=== PATIENT | female | born 1950 | race Caucasian/White ===

== ENCOUNTER 2017-07-28 12:27 | Emergency (ER) | payer MEDICARE, OTHER ==
[2017-07-28 13:07] LABS: #Basophils 0.1 thou/uL (0.0-0.2); #Eosinphils 0.3 thou/uL (0.0-0.7); #Lymphocytes 0.8 thou/uL (1.20-3.40); #Monocytes 0.6 thou/uL (0.11-0.59); #Neutrophils 7.1 thou/uL (1.40-6.50); %Basophils 0.6 % (0.0-1.0); %Eosinophils 2.9 % (0.0-10.0); %Lymphocytes 8.8 % (21.0-51.0); %Monocytes 6.8 % (0.0-10.0); Hematocrit 26.2 % (36.0-47.0); Mean Platelet Volume 6.4 fL (7.4-10.4); Red Blood Cell (RBC) Count 2.59 mill/uL (4.20-5.40); White Blood Cell (WBC) Count 8.7 thou/uL (4.8-10.8)
[2017-07-28 13:13] LABS: Bilirubin Negative (Negative); Blood, Urine Small (Negative); Glucose, Urine (Dipstick) Negative (Negative); Ketone, Urine Negative (Negative); Nitrite Negative (Negative); Protein, Urine (Dipstick) Trace mg/dL (Neg-Trace); Urobilinogen 0.2 mg/dL (0.2-1.0)
[2017-07-28 13:20] LABS: Bacteria/HPF 4+ HPF (None Seen); Hyaline Casts/LPF 0-3 HYALINE CAST LPF (0-3 Hyaline); RBC/HPF 0-3 HPF (0-3); Squamous Epithelial 0-3 HPF (0-3)
[2017-07-28 13:28] LABS: ALT (SGPT) 9 U/L (8-55); AST (SGOT) 17 U/L (5-34); Alkaline Phosphatase 61 U/L (40-150); Anion Gap 12 mmol/L (10-20); BUN (Urea Nitrogen) 31 mg/dL (9.8-20.1); Bilirubin, Total 0.3 mg/dL (0.2-1.2); Calc. Creatinine Clearance 0 mL/min (70-130); Calcium 9.1 mg/dL (7.8-10.44); Carbon Dioxide 23 mmol/L (23-31); Chloride 107 mmol/L (98-107); Estimated GFR-MDRD 48; Globulin 3.6 g/dL (2.4-3.5); Lipase 22 U/L (8-78)
[2017-07-28 13:39] LABS: Yeast-All Forms None Seen HPF (None Seen)
[2017-07-28] MEDS ORDERED: Iopamidol 370 76% 50 ML VIAL FS ONE (13:54)
[2017-07-28] MEDS ORDERED: ISOVUE-370 76%-LOCM 1 ML ONE (13:55)
[2017-07-28] MEDS ORDERED: Ondansetron HCl/PF 4 MG/2 ML Vial ONE (15:11)
[2017-07-28] MEDS ORDERED: Morphine 2 MG/ML SYRINGE ONE (15:17)
[2017-07-28] MEDS ORDERED: cefTRIAXone\\ROCEPHIN 1 GM VIAL ONE (17:13)
[2017-07-28] MEDS ORDERED: Sodium Chloride 0.9% 100 ML ONE (17:13)
--- NOTE | 2017-07-28 17:19 | CT ---
CT ABDOMEN AND PELVIS WITH CONTRAST: 07/28/17 HISTORY: Abdominal distention. History of colon resection. COMPARISON: CT abdomen and pelvic with contrast 2014. Patient has a history of uterine cancer, undergoing chemotherapy. Lung bases are clear. No pericardi al effusion. FINDINGS: Prior cholecystectomy. There is abnormal dilatation of the intrahepatic and extrahepatic b iliary system, similar dating back to 2014. This may be sequela of overlying stenosis of the papilla . There is moderate to severe right sided hydronephrosis. The urinary bladder is displaced posterior ly. No obstructive calculus is seen within the right renal collecting system. There are post treatment changes of the pelvis. There is abnormal peritoneal thickening along the stomal herniation with subcutaneous fluid and some loops of small bowel. There is some small foci of gas which is felt to be within the bowel on serie s 3, image 76, series 61, image 13. Large volume of ascites. This is much greater than 2015 examination. IVC filter is in place. There is a hypodensity within the spleen in the mid splenic body which is in creasing in size from prior examination. There is a ventral hernia with eventration of the abdominal wall containing small bowel and large samira wel without evidence of obstruction. There is a skin surgical staple in the abdomen adjacent to a sm all area of fluid containing ventral hernia. Extensive soft tissue edema of the flanks. IMPRESSION: IMPRESSION: 1. Large fluid and small bowel containing parastomal hernia with extensive peritoneal studding suggest progression of disease. 2. Large volume ascites. 3. Moderate to severe right sided hydroureteronephrosis. May be sequela of post treatment philip e. There is posterior displacement of the urinary bladder. 4. Moderate to severe intrahepatic and extrahepatic biliary dilatation may be sequela of papill guru stenosis. No distal obstructing mass is seen. The papilla is prominent on series 3, image 47. En doscopy may be beneficial. 5. Increasing in size hypodensity of the spleen, most likely a benign process although metastat ic disease cannot be totally excluded. 6. No evidence of bowel obstruction. 7. Ventral hernia containing large bowel and small bowel as well as ascitic fluid. POS: [facility]
== END 2017-07-28 18:35 | disposition home or self-care (01) ==
LOC: ERS 12:27
DX: N39.0 Urinary tract infection, site not specified (principal); R18.8 Other ascites; E11.9 Type 2 diabetes mellitus without complications; I10 Essential (primary) hypertension; Z79.891 Long term (current) use of opiate analgesic; Z79.01 Long term (current) use of anticoagulants; Z79.899 Other long term (current) drug therapy; Z79.4 Long term (current) use of insulin
CPT/HCPCS: 74177; 80053; 81003; 81015; 83690; 85025; 87077; 87086; 87186; 93005; 96361; 96365; 96375; J0696; J1642; J2270; J2405; J7050

== ENCOUNTER 2017-08-04 09:39 | Day surgery (SDC) | payer MEDICARE, OTHER ==
[2017-08-04 10:05] LABS: Prothrombin Time 14.7 SEC (12.0-14.7)
[2017-08-04 10:06] LABS: PTT 33.2 SEC (22.9-36.1)
[2017-08-04 12:28] VITALS: BP 148/80; TEMP 97.6; BMI 31.6
--- NOTE | 2017-08-04 14:57 | ULT ---
ULTRASOUND GUIDED PARACENTESIS: HISTORY: Ascites. COMPARISON: 06/27/2017 FINDINGS: A total of 4100 mL of blood colored ascites was aspirated. The patient tolerated the procedure well .. No immediate or post procedure complications. TECHNIQUE: Consent obtained to perform ultrasound guided paracentesis. The patient's abdomen was scanned and t he right lower quadrant was deemed appropriate. The skin was prepped and draped in a sterile fashio n. Lidocaine 1% buffered with sodium bicarbonate was used for local anesthesia. Under ultrasound g uidance, a 5 Omani, 7 cm catheter was advanced into the peritoneal space. Via vacuum bottles, a to humphrey of 4100 mL of bloody ascites was aspirated. The patient tolerated the procedure well. No post procedure complications. IMPRESSION: Successful ultrasound-guided paracentesis. POS: [facility]
== END 2017-08-04 11:45 | disposition home or self-care (01) ==
LOC: ULT 09:39
PROVIDERS: ATTEND Internal Medicine Hematology & Oncology
PROC: 0W9G3ZX Drainage of Peritoneal Cavity, Percutaneous Approach, Diagnostic (ICD-10-PCS; principal; 2017-08-04)
DX: R18.8 Other ascites (principal); C56.2 Malignant neoplasm of left ovary; E11.9 Type 2 diabetes mellitus without complications; I10 Essential (primary) hypertension; Z88.5 Allergy status to narcotic agent; Z88.8 Allergy status to other drugs, medicaments and biological substances; Z79.899 Other long term (current) drug therapy; Z90.49 Acquired absence of other specified parts of digestive tract; Z98.890 Other specified postprocedural states
CPT/HCPCS: 36415; 49083; 85610; 85730

== ENCOUNTER 2017-08-25 08:39 | Emergency (ER) | payer MEDICARE, OTHER ==
[2017-08-25] MEDS ORDERED: Morphine 4 MG/ML VIAL ONE (10:30)
--- NOTE | 2017-08-25 10:53 | RAD ---
1 VIEW CHEST: Date: 08/25/17 HISTORY: Abdominal pain. COMPARISON: 11/19/16. FINDINGS: Portable upright chest demonstrates a right-sided MediPort catheter. Elongation of the aorta is noted . Normal cardiac silhouette. Pulmonary vessels are within normal limits. There is blunting of the rig ht costophrenic angle due to pleural effusion and adjacent parenchymal changes. Left costophrenic ang le is clear. No pneumothorax. IMPRESSION: Pleural and parenchymal changes right lung base. Continued surveillance is recommended. POS: [facility]
[2017-08-25 11:05] LABS: #Eosinphils 0.1 thou/uL (0.0-0.7); #Lymphocytes 0.6 thou/uL (1.20-3.40); #Monocytes 0.4 thou/uL (0.11-0.59); #Neutrophils 5.3 thou/uL (1.40-6.50); %Basophils 0.5 % (0.0-1.0); %Monocytes 5.7 % (0.0-10.0); Mean Platelet Volume 6.3 fL (7.4-10.4); Red Blood Cell (RBC) Count 1.77 mill/uL (4.20-5.40); White Blood Cell (WBC) Count 6.4 thou/uL (4.8-10.8)
[2017-08-25 11:19] LABS: Troponin I Less than 0.010 ng/mL (< 0.028)
[2017-08-25 11:28] LABS: Prothrombin Time 16.1 SEC (12.0-14.7)
[2017-08-25 11:43] LABS: ALT (SGPT) 8 U/L (8-55); AST (SGOT) 16 U/L (5-34); Alkaline Phosphatase 65 U/L (40-150); Anion Gap 13 mmol/L (10-20); BUN (Urea Nitrogen) 32 mg/dL (9.8-20.1); Bilirubin, Total 0.3 mg/dL (0.2-1.2); Calc. Creatinine Clearance 0 mL/min (70-130); Calcium 8.5 mg/dL (7.8-10.44); Carbon Dioxide 19 mmol/L (23-31); Chloride 109 mmol/L (98-107); Estimated GFR-MDRD 39; Protein, Total 6.1 g/dL (6.0-8.3)
[2017-08-25 11:59] LABS: Bite Cells SLIGHT = 2-5 cells (100X) (0-1/hpf); Ovalocytes SLIGHT = 2-5 cells (100X) (0-1/hpf); Polychromasia SLIGHT = 2-3 cells (100X) (0-2/hpf); Tear Drops SLIGHT = 2-5 cells (100X) (0-1/hpf)
--- NOTE | 2017-08-25 12:41 | CT ---
CT ABDOMEN AND PELVIS WITH IV AND ORAL CONTRAST: Date: 08/25/17 HISTORY: Abdominal pain and bloating. COMPARISON: 07/28/17. FINDINGS: Right pleural fluid has developed since the prior study with atelectasis at each lung base. Large anibal unt of free fluid throughout the abdomen and pelvis has also increased. Upper anterior abdominal wall hernia containing nonobstructed bowel and fluid is not significantly changed. Peritoneal studding fo r metastatic disease is stable. Large parastomal hernia containing nonobstructed bowel and fluid is n ot significantly different than the previous study. Urinary bladder is compressed. Fibroid uterus and aortic calcifications are again demonstrated. Filter is present within the inferior vena cava. Low d ensity lesion within the spleen is stable. Tiny nonobstructing calculus at the inferior pole of the l eft kidney are similar in appearance to the prior exam. The left renal collecting system is decompres sed. Distention of the right renal collecting system and ureter are not significantly changed from th e previous study. No evidence of bowel obstruction. IMPRESSION: 1. Interval increase of free abdominal fluid. New right pleural effusion. 2. Extensive postoperative changes and other chronic-type findings are otherwise stable. No evidence of bowel obstruction. POS: [facility]
[2017-08-25 12:51] LABS: Bilirubin Negative (Negative); Blood, Urine Negative (Negative); Glucose, Urine (Dipstick) Negative (Negative); Ketone, Urine Negative (Negative); Nitrite Negative (Negative); Protein, Urine (Dipstick) Negative (Neg-Trace); Urobilinogen 0.2 mg/dL (0.2-1.0)
[2017-08-25 13:00] LABS: Bacteria/HPF None Seen HPF (None Seen); Hyaline Casts/LPF 4-6 HYALINE CAST LPF (0-3 Hyaline); RBC/HPF 0-3 HPF (0-3); Squamous Epithelial 0-3 HPF (0-3)
--- NOTE | 2017-08-25 17:15 | ULT ---
ULTRASOUND GUIDED PARACENTESIS: 08/25/17 HISTORY: Recurrent ascites. Patient with considerable discomfort. This was requested by the ER physician. The patient was on Xarelto but has not taken a dose for approximately 28 hours. Consultation is made with Pharmacy which states procedure could be performed after 24 hours. After informed consent was obtained with discussion of the additional risks for being on Xarelto, the patient consented to the procedure. She was prepped and draped in the normal sterile fashion. The la rgest pocket of fluid was in the right lower quadrant of the abdomen. The fluid has considerable echo genic material within it. This is of similar appearance to a previous ultrasound exam of 08/04/17. Using a 6 Sami Twisted Pair Solutionseh catheter, needle was placed under ultrasound guidance into the fluid without di fficulty. Total of 6 liters of fluid were obtained which was blood tinged. Patient tolerated the proc edure well. There were no immediate complications. IMPRESSION: Ultrasound guided paracentesis of 6 liters of fluid. POS: [facility]
[2017-08-25] MEDS ORDERED: ISOVUE-370 76%-LOCM 1 ML ONE (17:21)
[2017-08-25] MEDS ORDERED: Iopamidol 370 76% 50 ML VIAL FS ONE (17:21)
--- NOTE | 2017-09-16 15:32 | EKG ---
Test Reason : Blood Pressure : / mmHG Vent. Rate : 089 BPM Atrial Rate : 089 BPM P-R Int : 172 ms QRS Dur : 094 ms QT Int : 368 ms P-R-T Axes : 058 -06 043 degrees QTc Int : 447 ms Normal sinus rhythm Cannot rule out Inferior infarct , age undetermined Anterior infarct , age undetermined Abnormal ECG Confirmed by RAMIRO BRYAN D.O. ([id number]), marketing editor IVAN DYER ([id number]) on 09/16/2017 3:32:32 PM Referred By: Confirmed By:RAMIRO BRYAN D.O.
== END 2017-08-25 17:11 | disposition home or self-care (01) ==
LOC: ERS 08:39
DX: R18.8 Other ascites (principal); E11.9 Type 2 diabetes mellitus without complications; I10 Essential (primary) hypertension
CPT/HCPCS: 36415; 49083; 71010; 74177; 80053; 81003; 82553; 83605; 84484; 85025; 85610; 85730; 93005; 96374; J2270

== ENCOUNTER 2017-08-29 11:28 | Day surgery (SDC) | payer MEDICARE, OTHER ==
[2017-08-29] MEDS ORDERED: diphenhydrAMINE 25 MG CAP PO SCH (11:45)
[2017-08-29] MEDS ORDERED: Acetaminophen 500 MG TAB PO SCH (11:45)
[2017-08-29 19:26] VITALS: BP 160/82; TEMP 98
[2017-08-29 19:37] LABS: #Eosinphils 0.2 thou/uL (0.0-0.7); #Lymphocytes 1.1 thou/uL (1.20-3.40); #Monocytes 0.5 thou/uL (0.11-0.59); %Basophils 0.1 % (0.0-1.0); %Eosinophils 2.3 % (0.0-10.0); %Lymphocytes 16.8 % (21.0-51.0); %Monocytes 7.1 % (0.0-10.0); Hematocrit 29.9 % (36.0-47.0); Mean Platelet Volume 6.2 fL (7.4-10.4); Red Blood Cell (RBC) Count 2.99 mill/uL (4.20-5.40); White Blood Cell (WBC) Count 6.7 thou/uL (4.8-10.8)
== END 2017-08-29 19:27 | disposition home or self-care (01) ==
LOC: ONC/OP 11:28
PROVIDERS: ATTEND Internal Medicine Hematology & Oncology
PROC: 30233N1 Transfusion of Nonautologous Red Blood Cells into Peripheral Vein, Percutaneous Approach (ICD-10-PCS; principal; 2017-08-29)
DX: D64.9 Anemia, unspecified (principal); D69.59 Other secondary thrombocytopenia; C55 Malignant neoplasm of uterus, part unspecified; C78.6 Secondary malignant neoplasm of retroperitoneum and peritoneum; E11.9 Type 2 diabetes mellitus without complications; I10 Essential (primary) hypertension; Z79.84 Long term (current) use of oral hypoglycemic drugs; Z79.01 Long term (current) use of anticoagulants; Z79.891 Long term (current) use of opiate analgesic; Z79.899 Other long term (current) drug therapy; Z88.5 Allergy status to narcotic agent; Z88.8 Allergy status to other drugs, medicaments and biological substances; Z93.3 Colostomy status; Z95.828 Presence of other vascular implants and grafts; Z90.710 Acquired absence of both cervix and uterus; Z90.49 Acquired absence of other specified parts of digestive tract; Z98.890 Other specified postprocedural states; Z86.718 Personal history of other venous thrombosis and embolism
CPT/HCPCS: 36415; 36430; 80053; 82248; 83615; 84100; 84550; 85025; 86850; 86900; 86901; P9016

== ENCOUNTER 2017-08-31 19:08 | Inpatient (IN) | payer MEDICARE, OTHER ==
[2017-08-31 21:06] LABS: #Eosinphils 0.1 thou/uL (0.0-0.7); #Lymphocytes 0.8 thou/uL (1.20-3.40); #Monocytes 0.4 thou/uL (0.11-0.59); #Neutrophils 5.1 thou/uL (1.40-6.50); %Eosinophils 1.9 % (0.0-10.0); %Lymphocytes 12.7 % (21.0-51.0); %Monocytes 6.1 % (0.0-10.0); Hematocrit 25.7 % (36.0-47.0); Mean Platelet Volume 6.2 fL (7.4-10.4); Red Blood Cell (RBC) Count 2.56 mill/uL (4.20-5.40); White Blood Cell (WBC) Count 6.4 thou/uL (4.8-10.8)
[2017-08-31 21:07] LABS: Bilirubin Negative (Negative); Blood, Urine Negative (Negative); Glucose, Urine (Dipstick) Negative (Negative); Ketone, Urine Negative (Negative); Nitrite Negative (Negative); Protein, Urine (Dipstick) Negative (Neg-Trace); Urobilinogen 0.2 mg/dL (0.2-1.0)
[2017-08-31 21:10] LABS: Bacteria/HPF None Seen HPF (None Seen); Hyaline Casts/LPF 4-6 HYALINE CAST LPF (0-3 Hyaline); Squamous Epithelial 0-3 HPF (0-3)
[2017-08-31 21:26] LABS: Prothrombin Time 53.4 SEC (12.0-14.7)
[2017-08-31 21:27] LABS: ALT (SGPT) 8 U/L (8-55); AST (SGOT) 15 U/L (5-34); Alkaline Phosphatase 47 U/L (40-150); Anion Gap 12 mmol/L (10-20); BUN (Urea Nitrogen) 25 mg/dL (9.8-20.1); Bilirubin, Total 0.2 mg/dL (0.2-1.2); Calc. Creatinine Clearance 0 mL/min (70-130); Calcium 7.1 mg/dL (7.8-10.44); Carbon Dioxide 18 mmol/L (23-31); Chloride 112 mmol/L (98-107); Estimated GFR-MDRD 40; Globulin 2.4 g/dL (2.4-3.5); Protein, Total 4.7 g/dL (6.0-8.3)
[2017-08-31 21:30] LABS: PTT Greater than 250.0 SEC (22.9-36.1)
--- NOTE | 2017-08-31 23:51 | RAD ---
CHEST ONE VIEW: History: Abdominal pain. Chest pain. Comparison: 08-25-17 FINDINGS: Cardiac silhouette is magnified by projection. Pulmonary vasculature remains upper limits of normal. Mediastinum is midline with right internal jugular port-a-cath. Atelectasis and pleural fluid at the right base are stable. quality assurance monitor leads overlie the chest. IMPRESSION: Right pleural fluid and other findings are stable. POS: [facility]
[2017-09-01 00:41] VITALS: BMI 30.7
[2017-09-01] MEDS ORDERED: FLU VACC TS2017-18 (>65YR) 0.5 ML SYRINGE IM ONE (09:00)
--- NOTE | 2017-09-01 09:26 | HP ---
HISTORY OF PRESENT ILLNESS: Ms. Castro is a 67-year-old female treated by Dr. Gregorio Bejarano, her family practice physician and seen by Dr. Marie, her oncologist, for uterine cancer and who is hospitalized from the emergency room with new onset lower extremity edema preventing her from ambulating, an uncomfortable rash in her right groin, increasing abdominal girth , a report of some abdominal pain, which upon further discussion appears to be coincident with the right lower quadrant/right groin area rash of a few days. She denies any fever, chest pain or shortness of breath, but indicates she has had a cough and some runny nose for approximately the last week. She denies vomiting or diarrhea, and had a normal bowel movement 1 day ago. She denies hematuria or dysuria. PAST MEDICAL HISTORY: 1. Carcinoma of the ovary, as of 10/2014, status post hysterectomy and chemotherapy with no radiation. She continues to have chemotherapy and has an upcoming chemotherapy schedule this next week. 2. History of diabetes. 3. History of hypertension. 4. History of a left lower extremity DVT with IVC filter placement. 5. Colostomy (performed at the time of her surgery for her malignancy). PAST SURGICAL HISTORY: 1. Hysterectomy. 2. Partial colectomy with colostomy. 3. Carpal tunnel syndrome surgery x2. 4. Hernia repair. 5. Right upper chest MediPort. CURRENT HOME MEDICATIONS: Xarelto 20 mg daily, Januvia 100 mg daily, amlodipine 5 mg daily, lisinopril 20 mg daily, [place] 10/325 twice daily, ondansetron 4 mg q.6h. p.r.n. nausea. ALLERGIES AND SENSITIVITIES: 1. ACETAMINOPHEN listed in dictation, indicates no problems. 2. ATENOLOL, causes headache. 3. CODEINE, causes rash and headache. 4. METFORMIN, headache, and vomiting. 5. DARVOCET, rash and headache. SOCIAL HISTORY: No alcohol or illicit drug use. Living situation, the patient lives near [place] in a home with her youngest son. She has another son who lives nearby. She has been a for many years. Hobbies; she likes to sew quilts and watch old movies on television. Sabianist preference is Mormonism/Sikh. PHYSICAL EXAMINATION: VITAL SIGNS: Weight 168 pounds, blood pressure 132/74, O2 sat 93, respiratory rate 20, pulse 92, temperature 98.1. GENERAL: Alert, pleasant, in no acute distress with occasional cough. HEENT: No conjunctivitis. Oral cavity shows upper and lower dentures that are present. LUNGS: Nonlabored breathing right chest with diffusely less breath sounds. CARDIAC: Regular rate and rhythm with a 2/6 systolic murmur. ABDOMEN: Bowel sounds are present. There is a large midline epigastric bulge suggestive of an abdominal hernia in the epigastrium. In the right lower quadrant/groin area there is a diffuse red confluence with some small reddish macular lesions seen on the periphery of this without ulceration, vesicles or bullae. Left lower quadrant is a normal appearing colostomy with colostomy bag. EXTREMITIES: Bilateral lower extremity edema which includes feet, ankles and legs below the knee. LABORATORY AND X-RAY FINDINGS: Chest x-ray shows right-sided pleural effusion. White blood cell count 6.4, hemoglobin 8.4, platelets 257. PT 53. INR 5.5, PTT greater than 250, potassium 4.1, sodium 138, carbon dioxide 18, BUN 25, creatinine 1.33, albumin 2.3. Urinalysis, too numerous to count white blood cells, squamous cells 0-3, 4-6 red blood cells. Abdominal pelvis CT from 6 days prior, abdominal fluid and new right-sided pleural effusion, dilation of right-sided ureter/collecting system. ASSESSMENT: 1. Ovarian cancer with ongoing chemotherapy, metastatic, intraperitoneal. 2. Abnormal urine suggestive of urinary tract infection. 3. Right groin rash which could be Cecelia. 4. New onset of lower extremity edema impairing her ambulation. 5. Right-sided pleural effusion. 6. Ascites. 7. Mild upper respiratory infection symptoms with cough and rhinorrhea. 8. Laboratories suggest of coagulopathy, but no active bleeding is seen. 9. History of deep vein thrombosis on Xarelto and with history of IVC placement. 10. History of diabetes. 11. History of hypertension. PLAN: 1. Empiric antibiotic therapy. 2. Compression stockings. 3. Nystatin cream to right groin area. 4. Oncology consultation. 5. Consider blood transfusion. [facility]
[2017-09-01] MEDS ORDERED: Phytonadione 10 MG/ML AMP SLOW IVP SCH (10:30)
--- NOTE | 2017-09-01 10:38 | CON ---
DATE OF CONSULTATION: 09/01/2017 REASON FOR CONSULTATION: Coagulopathy. HISTORY OF PRESENT ILLNESS: The patient is a 67-year-old woman with known progressive, metastatic ov pako carcinoma initially diagnosed in 10/2014. The patient has been treated with multiple chemother apeutic regimens and her treatment has included debulking surgery in 01/2015. More recently, the dis ease has been progressing despite multiple chemotherapeutic interventions. She did experience a post operative deep venous thrombosis in 01/2015, which resulted in placement of an IVC filter. Since fabian t time, she has been maintained on Xarelto. She has required repeat paracentesis for malignant ascit es and has also required repetitive red cell transfusion for treatment and malignancy associated anem ia. On the day of admission, she presented to the emergency room with concerns of a significant brui se in the right lower quadrant which had developed subsequent to recent paracentesis. Laboratory joe dies were performed showing a stable post-transfusion hemoglobin of 8.4. She was hemodynamically sta ble. However, coagulation studies showed a PT of 53.4 seconds, INR 5.5, and PTT greater than 250. S he is admitted at this time for further evaluation and treatment. ALLERGIES: She describes sensitivities to CODEINE, DARVOCET and GLUCOPHAGE. MEDICATIONS: [place], Xarelto, Prochlorperazine and ondansetron. MEDICAL ILLNESS: There is a history of hypertension, diabetes mellitus, and an episode of pancreatit is in 2011 of unclear cause. PAST SURGICAL HISTORY: She has undergone cholecystectomy in 2008 and hernia repair in 2009. FAMILY HISTORY: The patient's sister had ovarian cancer in her 30s, details unavailable. She then d eveloped breast cancer and at age 50. SOCIAL HISTORY: The patient is . She has 2 children. She lives alone, but her son is quite involved in her care. She is a nonsmoker and nondrinker. She has worked in sales in the past. REVIEW OF SYSTEMS: She complains of lower extremity edema and lower extremity muscle cramps. Otherw ise, except as mentioned in history of present illness, she denies significant cardiopulmonary, GI, G U, musculoskeletal, or neurological complaints. PHYSICAL EXAMINATION: VITAL SIGNS: Temperature 98.4, pulse 90, respirations 16, blood pressure 142/78. GENERAL: The patient is a well-developed and well-nourished woman in no acute distress. She is aler t, oriented, and cooperative. She does appear somewhat chronically ill. HEENT: The extraocular movements are intact. Pupils equal, round, and reactive to light. NECK: Supple. LUNGS: Clear. CARDIOVASCULAR: Regular rate and rhythm without murmur, rub, gallop or click. ABDOMEN: The abdomen shows no tenderness or mass/organomegaly. There is a large ventral hernia pres ent. She is quite obese and there is likely ascites present. There is an ecchymotic area in the ext joshua right lower quadrant without active bleeding at the site of the prior, recent paracentesis. EXTREMITIES: No clubbing or cyanosis. There is 3+ lower extremity pitting edema to the thighs. LYMPH: No adenopathy. MUSCULOSKELETAL: No active arthritis. NEUROLOGIC: No focal findings. Cranial nerves II-XII are grossly intact. LABORATORY: See history of present illness. IMAGING: A chest x-ray shows a right pleural effusion, which has been present previously without oth er significant findings. IMPRESSION: 1. Metastatic and progressive ovarian carcinoma with malignant ascites requiring repetitive therapeu tic paracentesis. 2. Coagulopathy manifested by an elevated INR and PTT in a patient who is hemodynamically stable wit hout significant bleeding. RECOMMENDATIONS: I would recommend repeating the PT/INR and PTT to be certain the study is accurate. However, the coagulopathy is likely secondary to malnutrition, vitamin K deficiency, and Xarelto ef fect. There is little evidence of DIC or a disk diversion at present. I would recommend holding the Xarelto for now and administering vitamin K. We will follow daily coagulation studies and resume Xa relto when studies allow. We will likely resume Xarelto at a lower dose, 10 mg daily, based upon rec ently reported studies of lower dose maintenance therapy. Thanks very much for allowing me to provide my recommendations.
[2017-09-01 10:45] LABS: PTT 38.2 SEC (22.9-36.1); Prothrombin Time 15.1 SEC (12.0-14.7)
[2017-09-01] MEDS ORDERED: ONDANSETRON 4 MG PO PRN (14:17)
[2017-09-01] MEDS ORDERED: Ondansetron ODT 4 MG TAB PO PRN (14:25)
[2017-09-01] MEDS: HYDROcodone/Acetaminophen 10/325 mg Tablet PO SCH (19:38)
[2017-09-01] MEDS: Nystatin Cream 30 GM TUBE TOP SCH (19:44)
[2017-09-01] MEDS ORDERED: Nystatin Cream 15 GM TUBE TOP SCH (21:00)
[2017-09-02 06:06] LABS: Prothrombin Time 14.2 SEC (12.0-14.7)
[2017-09-02 06:07] LABS: PTT 36.2 SEC (22.9-36.1)
[2017-09-02 07:12] VITALS: BP 138/78
[2017-09-02] MEDS: HYDROcodone/Acetaminophen 10/325 mg Tablet PO SCH (08:27)
[2017-09-02] MEDS: Nystatin Cream 30 GM TUBE TOP SCH (08:29)
[2017-09-02] MEDS ORDERED: Alogliptin Benzoate 25 MG TABLET PO SCH (09:00)
[2017-09-02] MEDS ORDERED: Rivaroxaban 10 MG TAB PO SCH (09:00)
[2017-09-02] MEDS ORDERED: Amlodipine 5 MG TAB PO SCH (09:00)
[2017-09-02] MEDS ORDERED: Non-Formulary Item 1 EACH (Rivaroxaban [Xarelto] 20 MG) PO SCH (09:00)
[2017-09-02] MEDS ORDERED: Lisinopril 20 MG TAB PO SCH (09:00)
[2017-09-02 09:29] VITALS: TEMP 97.3
--- NOTE | 2017-09-02 16:20 | PRG ---
DATE OF SERVICE: 09/02/2017 SUBJECTIVE: Feeling much better and desirous of going home. She is able to ambulate independently w ithout difficulty. She has improvement of the rash in her right groin/right lower quadrant area. Sh enrike continues to have some cough. OBJECTIVE: VITAL SIGNS: Blood pressure 138/78, pulse 81, temperature 97.3, O2 saturation 96. GENERAL: Alert and oriented x3, in no acute distress. LUNGS: With diffusely diminished breath sounds on her right lung angulo. CARDIAC: Regular rate and rhythm with 2/6 systolic murmur. Right chest wall port present. ABDOMEN: Soft, nontender. Some improvement in the intensity of the Cecelia looking rash in her righ t lower quadrant, right groin area (intertrigo). EXTREMITIES: Swelling seen in her lower extremities. NEUROLOGIC: The patient is able to independently sit, stand, walk and return to the bed with a nicole l gait and station. LABORATORY DATA: INR 1.1. ASSESSMENT: 1. Ovarian carcinoma, metastatic and progressive with malignant ascites. 2. Right-sided pleural effusion. 3. Abnormal urinalysis suggestive of urinary tract infection, currently on levofloxacin. 4. Right groin area candidiasis. 5. Abnormal laboratory value suggesting coagulopathy without hematuria, blood in stool, nosebleeds, hematoma or any significant cutaneous bruising. 6. Lower extremity edema. 7. Hypoalbuminemia. 8. Cough, likely related to pleural effusion. 9. History of deep vein thrombosis with history of IVC placement. 10. History of diabetes. 11. History of hypertension. PLAN: Compression stockings. We will expect discharge home soon.
--- NOTE | 2017-09-03 01:55 | DIS ---
HOSPITAL COURSE: Ms. Castro is a 67-year-old female treated by Dr. Gregorio Bejarano of Family Practice and Dr. Dimitri Marie of Oncology, who presented with a dramatic increase in her bilateral lower extremity swelling impeding her ambulation, abdominal pain, as well as some right lower quadrant area reddish rash. She was evaluated in the emergency room and found to have an abnormal lab test suggesting of coagulopathy which normalized on repeat testing. She had an abnormal urinalysis with too numerous to count white blood cells for which she received levofloxacin. She was seen in consultation by Dr. Marie who being familiar with her care and case, indicated at this time she appears to be appropriate for discharge, although her ovarian cancer, metastatic and progressive with intraperitoneal spread, continues to cause many problems to include hypoalbuminemia and anemia. ASSESSMENT: 1. Ovarian carcinoma with ongoing chemotherapy (with metastases, peritoneal) and upcoming continued chemotherapy this following week. 2. Abnormal urine suggestive of urinary tract infection, status post Levaquin therapy. 3. Right groin rash which was thought possibly due to some bruising from a recent paracentesis several centimeters above where this right lower quadrant/ groin bruising appears to be, while I am inclined to think of it as a candidiasis, lower extremity edema with hypoalbuminemia. 4. Ascites. 5. Right-sided pleural effusion with some cough. 6. Labs suggestive of coagulopathy with no active bleeding. 7. History of deep vein thrombosis with a history of intravenous filter placement and chronic anticoagulation therapy with Xarelto. 8. History of diabetes. 9. History of hypertension. PLAN: Discharge home today. Follow with Dr. Marie as planned this next week. Continue home medications which include Xarelto 20 mg daily, ondansetron 4 mg q. 6 hours p.r.n., Januvia 100 mg daily, amlodipine 5 mg daily, lisinopril 20 mg daily, nystatin cream applied topically twice daily. [facility]
== END 2017-09-02 14:47 | disposition home or self-care (01) | DRG 755 ==
LOC: ERS 19:08 → T4-B 22:30
PROVIDERS: ADMIT Family Medicine; ATTEND Family Medicine
DX: C56.9 Malignant neoplasm of unspecified ovary (principal); C78.6 Secondary malignant neoplasm of retroperitoneum and peritoneum; R18.0 Malignant ascites; J90 Pleural effusion, not elsewhere classified; B37.89 Other sites of candidiasis; D68.4 Acquired coagulation factor deficiency; E88.09 Other disorders of plasma-protein metabolism, not elsewhere classified; N39.0 Urinary tract infection, site not specified; Z86.718 Personal history of other venous thrombosis and embolism; Z79.01 Long term (current) use of anticoagulants; I10 Essential (primary) hypertension; E11.9 Type 2 diabetes mellitus without complications; Z80.41 Family history of malignant neoplasm of ovary; D63.0 Anemia in neoplastic disease; Z90.710 Acquired absence of both cervix and uterus; Z93.3 Colostomy status
CPT/HCPCS: 36415; 36416; 71010; 80053; 81003; 81015; 85025; 85610; 85730; 93005; 96374; J0696; J3430

== ENCOUNTER 2017-09-06 11:50 | Day surgery (SDC) | payer MEDICARE, OTHER ==
[~2017-09-06 11:50] MED LIST: FLU VACC TS2017-18 (>65YR) 0.5 ML SYRINGE IM ONE
[2017-09-06 14:19] VITALS: TEMP 98.1
[2017-09-06 14:21] VITALS: BMI 31.6
--- NOTE | 2017-09-06 15:05 | ULT ---
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 TECHNIQUE: Signed, informed consent obtained. Ultrasound survey of the four quadrants of the abdominal cavity. R ight lower quadrant selected. Overlying skin prepped and draped in usual sterile fashion. 25 gauge ne edle used to apply buffered lidocaine superficially and deeply. 5 Sami Yueh catheter with stylette advanced in tandem with the 25 gauge needle into the peritoneal cavity. 25 gauge needle and the style tte of the Yueh catheter were removed. Yueh catheter was connected to a series of evacuated bottles v ia plastic tubing. After drainage, catheter was removed. The patient tolerated the procedure well. No complications. FINDINGS: Prior to the procedure, there is a large pocket of fluid in the right lower quadrant, moderate pocket of free fluid in the right upper quadrant, small pocket of free fluid in the left upper quadrant, an d no fluid in the left lower quadrant. The fluid has homogeneously intermediate echogenicity, indicat ing that it is hemorrhagic ascites. Post drainage image demonstrates no residual fluid in the right lower quadrant. A total of 5,100 mL of frankly hemorrhagic fluid was drained. IMPRESSION: Successful therapeutic paracentesis, with drainage of 5.1 liters of hemorrhagic ascites. POS: [facility]
== END 2017-09-06 14:10 | disposition home or self-care (01) ==
LOC: ULT 11:50
PROVIDERS: ATTEND Internal Medicine Hematology & Oncology
PROC: 0W9G3ZX Drainage of Peritoneal Cavity, Percutaneous Approach, Diagnostic (ICD-10-PCS; principal; 2017-09-06)
DX: C56.2 Malignant neoplasm of left ovary (principal); C78.6 Secondary malignant neoplasm of retroperitoneum and peritoneum; R18.0 Malignant ascites; Z88.5 Allergy status to narcotic agent; Z88.8 Allergy status to other drugs, medicaments and biological substances
CPT/HCPCS: 49083

== ENCOUNTER 2017-09-10 18:22 | Inpatient (IN) | payer MEDICARE, OTHER ==
[~2017-09-10 18:22] MED LIST changes: -FLU VACC TS2017-18 (>65YR) 0.5 ML SYRINGE IM ONE; +Iopamidol 370 76% 100 ML VIAL ONE
[2017-09-10 19:30] LABS: #Eosinphils 0.1 thou/uL (0.0-0.7); #Lymphocytes 0.9 thou/uL (1.20-3.40); #Neutrophils 5.1 thou/uL (1.40-6.50); %Basophils 0.2 % (0.0-1.0); %Eosinophils 1.1 % (0.0-10.0); %Lymphocytes 14.6 % (21.0-51.0); %Monocytes 0.5 % (0.0-10.0); Hematocrit 31.7 % (36.0-47.0); Mean Platelet Volume 6.4 fL (7.4-10.4); Red Blood Cell (RBC) Count 3.16 mill/uL (4.20-5.40); White Blood Cell (WBC) Count 6.1 thou/uL (4.8-10.8)
[2017-09-10] MEDS ORDERED: Morphine 4 MG/ML VIAL ONE ×2 (19:35→21:49)
[2017-09-10 19:37] LABS: PTT 39.6 SEC (22.9-36.1); Prothrombin Time 19.1 SEC (12.0-14.7)
[2017-09-10 19:53] LABS: ALT (SGPT) 7 U/L (8-55); AST (SGOT) 15 U/L (5-34); Alkaline Phosphatase 60 U/L (40-150); Anion Gap 10 mmol/L (10-20); BUN (Urea Nitrogen) 30 mg/dL (9.8-20.1); Bilirubin, Total 0.2 mg/dL (0.2-1.2); Calc. Creatinine Clearance 0 mL/min (70-130); Calcium 8.7 mg/dL (7.8-10.44); Carbon Dioxide 25 mmol/L (23-31); Chloride 102 mmol/L (98-107); Estimated GFR-MDRD 53; Lipase 15 U/L (8-78); Magnesium 1.4 mg/dL (1.6-2.6); Protein, Total 5.8 g/dL (6.0-8.3)
[2017-09-10 19:57] LABS: Troponin I Less than 0.010 ng/mL (< 0.028)
[2017-09-10] MEDS ORDERED: Magnesium 2 GM/NS 0.9% 50 ML 2 GM in Premix Bag 1 BAG IVPB SCH (20:15)
--- NOTE | 2017-09-10 21:04 | RAD ---
AP CHEST: Indication: Chest pain. Comparison: 08-31-17 FINDINGS: There is worsening right sided pleural effusion with some residual aeration involving the right upper lobe. Chronic lung changes of the left lung is similar. Cardiomegaly is similar. Right IJ dialysis c atheter is unchanged. Osseous structures are similar appearing. IMPRESSION: Enlarging severe right sided pleural effusion. The remainder of the examination is stable to the comp arison. POS: [facility]
[2017-09-10 21:18] LABS: Bilirubin Negative (Negative); Blood, Urine Negative (Negative); Glucose, Urine (Dipstick) Negative (Negative); Ketone, Urine Negative (Negative); Nitrite Negative (Negative); Protein, Urine (Dipstick) Negative (Neg-Trace); Urobilinogen 0.2 mg/dL (0.2-1.0)
--- NOTE | 2017-09-10 21:21 | CT ---
CT ABDOMEN AND PELVIS WITH IV CONTRAST: Indication: Abdominal pain radiating into the right aspect. Comparison: 08-25-17 FINDINGS: There is an enlarging right sided pleural effusion causing mass effect on the mediastinum and near co mplete atelectasis of the right lower lobe. Prominent ascites is again noted with associated abdomina l wall and periumbilical hernias. Parastomal hernia involving the left lower quadrant with associated fluid distending the hernia sac is similar appearing. The peritoneal metastatic disease is similar. Small bowel is normal caliber. Moderate amount of retained stool is seen within the colon. IVC filter is similar appearing. Prominent distention of the right renal collecting system is similar. Left alvina al collecting system remains decompressed. Mild lymphadenopathy is seen within the upper abdomen is s imilar. There is diffuse anasarca. Scattered degenerative and osteoarthritic change. IMPRESSION: 1. Worsening large right pleural effusion with near complete atelectasis of the right lower lobe and mass effect upon the mediastinum. 2. Stable prominent ascites with anterior abdominal and parastomal hernias containing peritoneal flui d. 3. Stable peritoneal metastatic disease. 4. Mild anasarca. POS: [facility]
[2017-09-10] MEDS ORDERED: Ondansetron HCl/PF 4 MG/2 ML Vial ONE (21:58)
[2017-09-10] MEDS ORDERED: Ondansetron ODT 4 MG TAB SL PRN (22:29)
[2017-09-10] MEDS ORDERED: Ondansetron HCl/PF 4 MG/2 ML Vial IVP PRN (22:29)
[2017-09-10] MEDS ORDERED: Acetaminophen 325 MG TAB PO PRN (22:29)
[2017-09-10 22:57] LABS: Troponin I 0.011 ng/mL (< 0.028)
[2017-09-11 01:20] LABS: Troponin I Less than 0.010 ng/mL (< 0.028)
[2017-09-11] MEDS: Morphine 4 MG/ML VIAL SLOW IVP PRN ×2 (03:51→08:07)
[2017-09-11] MEDS: Amlodipine 5 MG TAB PO SCH (08:09)
[2017-09-11] MEDS: Rivaroxaban 10 MG TAB PO SCH (08:09)
[2017-09-11] MEDS: Alogliptin Benzoate 25 MG TABLET PO SCH (08:10)
[2017-09-11] MEDS: Lisinopril 20 MG TAB PO SCH (08:10)
--- NOTE | 2017-09-11 08:34 | HP ---
ADMITTING PHYSICIAN: Gregorio Bejarano M.D. HISTORY OF PRESENT ILLNESS: The patient is a 67-year-old female with known history of ovarian cancer . She was most recently hospitalized here 08/31/2017 with a history of shortness of breath. She was found to have massive ascites, right-sided pleural effusion. At that time she underwent paracentesi s with some improvement. She now notes that she is having difficulty walking and shortness of breath . She now notes no fever. She notes shortness of breath, abdominal discomfort with abdominal protub erance. As noted, she was most recently evaluated here approximately 3-4 weeks ago. At that time angeline calvert underwent paracentesis. There has been no fever. She has recently undergone chemotherapy. ALLERGIES: She has no known allergies. CURRENT HOME MEDICATIONS: Xarelto 20 mg daily, Januvia 100 mg daily, amlodipine 5 mg daily, lisinopr il 20 mg daily, [place] 10/325 daily, ondansetron 4 mg every 6 hours p.r.n. nausea. PAST MEDICAL HISTORY: Positive for the above noted ovarian cancer. PAST SURGICAL HISTORY: She is a positive for hysterectomy, colectomy with colostomy, carpal tunnel s urgery, hernia repair, right upper chest MediPort. She also has a history of DVT with IVC filter. ALLERGIES: ACETAMINOPHEN, TYLENOL, CODEINE, METFORMIN, DARVOCET. SOCIAL AND PERSONAL HISTORY: She is a . She does not smoke nor does she drink alcohol. Her gr andson lives with her. PHYSICAL EXAMINATION: VITAL SIGNS: Temperature 97.4, pulse 107, respirations 16, O2 sat 96%, blood pressure 131/65. GENERAL: She is alert, appears to be in some mild distress with fatigue. HEENT: There is alopecia secondary to chemotherapy. Sclerae and conjunctivae clear. NECK: Supple, full range of motion, no masses. LUNGS: Reveal decreased breath sounds at the right base. There is no evidence of any rales. HEART: Reveals an irregular regular rhythm with grade 2/6 systolic murmur. ABDOMEN: Protuberant, obese with a hernia midline. There is no evidence of rebound or guarding note d at this time. EXTREMITIES: Shows 2+ edema bilaterally. LABORATORY: Hemoglobin is 10.2, hematocrit 31.7, white blood count 6.1. PT 19.1, INR of 3.6, sodium 132, potassium 4.9, chloride 102, CO2 25, BUN 30, creatinine 1.04. Troponins are otherwise normal. Urinalysis is clear. IMPRESSION: Increasing ascites and right pleural effusion, most likely secondary to malignancy. PLAN: We will hold his Xarelto at this time, possibly can plan on doing a therapeutic paracentesis a nd possible thoracentesis once she has been off of Xarelto. We will consult Oncology for further rec ommendations.
[2017-09-11] MEDS ORDERED: Nystatin Cream 15 GM TUBE TOP SCH ×2 (09:00)
[2017-09-11] MEDS ORDERED: Non-Formulary Item 1 EACH (Rivaroxaban [Xarelto] 20 MG) PO SCH (09:00)
[2017-09-11] MEDS: Ondansetron ODT 4 MG TAB PO PRN (10:10)
[2017-09-11] MEDS: Enoxaparin Sodium 30 MG/0.3 ML SYRINGE SC SCH (11:02)
[2017-09-11] MEDS ORDERED: Morphine 4 MG/ML Carpuject SLOW IVP PRN (11:13)
[2017-09-11] MEDS ORDERED: Morphine 4 MG/ML VIAL IV PRN (11:16)
--- NOTE | 2017-09-11 12:50 | CON ---
DATE OF CONSULTATION: 09/11/2017 REASON FOR CONSULTATION: Ovarian cancer. HISTORY OF PRESENT ILLNESS: Ms. 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 She has undergone multiple chemotherapy regimens and is current ly on topotecan. Her last dose was completed on Monday09/08/2017, she has been struggling with myel osuppression from this treatment and has been inconsistently able to get it. She has had increasing abdominal distention and has had several paracenteses. Her last was on 09/06/2017 when she had 5.1 l iters removed. Over the weekend, she had increasing shortness of breath and abdominal distention, so she presented to the emergency room for evaluation and a CT scan showed a large right pleural effusi on. She again had a moderate amount of ascites. She was admitted for treatment, Pulmonology was con sulted for possible thoracentesis. The patient complains of shortness of breath and abdominal pain. PAST MEDICAL HISTORY: 1. Metastatic ovarian carcinoma. 2. Diabetes mellitus. 3. Hypertension. 4. Cholelithiasis. 5. Pancreatitis. PAST SURGICAL HISTORY: 1. Cholecystectomy. 2. Hernia repair. 3. Multiple paracentesis. ALLERGIES: DARVOCET and GLUCOPHAGE. HOME MEDICATIONS: 1. Amlodipine 5 mg daily. 2. Hydrocodone 10/325 p.o. b.i.d. p.r.n. 3. Lisinopril 20 mg daily. 4. Zofran p.r.n. 5. Xarelto 10 mg daily. 6. Januvia 50 mg daily. FAMILY HISTORY: Her sister had ovarian cancer at the age of 30 and developed breast cancer and at the age of 50. SOCIAL HISTORY: . Has 2 children, lives with her son. No alcohol, tobacco or illicit drug u se. REVIEW OF SYSTEMS: Twelve-point review of systems is negative except for abdominal distention and sh ortness of breath and lower extremity swelling. PHYSICAL EXAMINATION: VITAL SIGNS: Temperature is 98.7, pulse is 92, respiratory rate 18, BP is 129/60. She is 96% on 2 l iters. GENERAL: Chronically ill-appearing female in no acute distress. HEENT: Normocephalic, atraumatic. Pupils equal and reactive to light. CARDIOVASCULAR: Regular rate and rhythm. LUNGS: Diminished on her right anteriorly. ABDOMEN: Distended, bowel sounds are positive. EXTREMITIES: She has got 1+ bilateral lower extremity edema. SKIN: No rash. HEMATOLOGIC: No petechia or purpura. NEUROLOGIC: Nonfocal. PSYCHIATRIC: The patient is alert and oriented and appropriate. PERTINENT LABORATORY AND X-RAYS: Current WBCs are 6.1, hemoglobin 10.2, hematocrit 31.7, platelet co unt 244,000 and 84% neutrophils, 15% lymphocytes. PT is 19.1, INR is 1.6, PTT is 39.6. Sodium 132, potassium 4.9, chloride 102, CO2 is 25, BUN is 30, creatinine 1.04, glucose 107, calcium 8.7, magnesi um 1.4, total bilirubin is 0.2, AST 17, ALT 7, alkaline phosphatase is 60. Troponin is negative. BN P is 120, serum total protein 5.8, albumin 2.8, globulin 3, lipase is 15. Urine is negative for bact eria. ASSESSMENT: 1. Metastatic ovarian carcinoma, status post chemotherapy with topotecan last week. 2. Malignant ascites, requiring recurrent paracentesis, last performed 09/06/2017. 3. Malignant right pleural effusion. DISCUSSION: The patient did receive her Xarelto this morning, but it will be held and for a possible palliative thoracentesis tomorrow. Dr. Lopez has been consulted for his opinion. She may need a paracentesis prior to discharge home. The patient and her son are hesitant to discuss end-of-life is sues. She remains a FULL CODE at this time. Thank you for the consult.
[2017-09-11] MEDS: HYDROcodone/Acetaminophen 10/325 mg Tablet PO PRN ×2 (13:30→21:56)
[2017-09-11] MEDS ORDERED: Lidocaine 1% (PF) 30 ML VIAL ONE (16:31)
--- NOTE | 2017-09-11 17:01 | CON ---
DATE OF SERVICE: 09/11/2017 SERVICE: Pulmonary Medicine. REASON FOR CONSULTATION: Respiratory failure. HISTORY OF PRESENT ILLNESS: The patient is a 67-year-old white female with past medical history sign ificant for uterine cancer. She was in her usual state of health when she started having increasing dyspnea on exertion. Previously, she had a paracentesis that was performed demonstrating adenocarcin magnolia in the fluid. She does have a right-sided pleural effusion that was present previously. That be ing said, it was left alone because it was not as large as it has now become. She denies any current fevers or chills. She has no specific cough or sputum production. PAST MEDICAL HISTORY: 1. Adenocarcinoma, ovarian thought to be the primary (though the patient tells me it is uterine canc er). 2. Type 2 diabetes mellitus. 3. Hypertension. PAST SURGICAL HISTORY: 1. Cholecystectomy. 2. Herniorrhaphy. 3. Paracentesis, multiple. ALLERGIES: DARVOCET, GLUCOPHAGE. MEDICATIONS: List of her inpatient medications was reviewed. No specific updates were made at this time. FAMILY HISTORY: Noncontributory. SOCIAL HISTORY: She is . She has 2 childrens and lives with her son. She denies any use of alcohol, tobacco or illicit drugs. She has no exposure to chemicals, dust, asbestosis or tuberculosi s. REVIEW OF SYSTEMS: General, head, ears, eyes, nose, throat, cardiovascular, respiratory, GI, , mus culoskeletal, neurologic and skin is negative except as mentioned in the HPI. PHYSICAL EXAMINATION: VITAL SIGNS: Afebrile, pulse 95, blood pressure 131/64, respirations 16, saturation 96% on room air. GENERAL: The patient is awake and alert, in no apparent distress. LUNGS: Decent air entry on the left. On the right, she does not have any vesicular breath sounds, a lthough they are present. There are no wheezing, rhonchi, or crackles are appreciated. HEART: Normal rate, regular. ABDOMEN: Soft. Nontender. No rebound or guarding is present. Bowel sounds are present. MUSCULOSKELETAL: No cyanosis or clubbing. No pitting in the bilateral lower extremities. NEUROLOGIC: Grossly nonfocal. : No Hanson. LABORATORY: WBC 6.1, hemoglobin 10.2, platelets 244,000. INR 1.6. Basic metabolic profile and live r function studies are essentially unremarkable except for magnesium of 1.4. Liver function studies, cardiac enzymes are negative. BNP is minimally elevated at 119. Urinalysis is negative. IMAGING: CT of the abdomen and pelvis demonstrates a large pleural effusion on the right. There is otherwise no acute cardiopulmonary abnormality. There is complete atelectasis of the right lower lob e. There is mass effect on the mediastinum. Minimal anasarca is present. Chest x-ray demonstrates tirso-opacification of the right lung. Mediastina shifted away from the pleu ral effusion. A port catheter is in good position. ASSESSMENT: 1. Adenocarcinoma, widely metastatic, genitourinary origin. 2. Pleural effusion, large. PLAN: We will perform a thoracentesis for therapeutic and diagnostic purposes. If there are cancer cells present, which I presume there will be, she will be a candidate for PleurX next go around provi ded that she gets good relief from the staff. Pulmonary Critical Care will continue to follow while the patient remains in house for the time being.
[2017-09-11 17:24] LABS: BF Reference Range Comment Note:
[2017-09-11 18:57] LABS: BF Color Pink
[2017-09-11 18:58] LABS: RBC Count-Automated 10000 /cumm
[2017-09-11 21:02] LABS: Number Cells Counted-Fluids 100
[2017-09-12] MEDS: Nystatin Cream 30 GM TUBE TOP SCH ×3 (00:27→22:36)
[2017-09-12] MEDS: Ondansetron ODT 4 MG TAB PO PRN ×3 (00:27→22:35)
--- NOTE | 2017-09-12 00:35 | OP ---
DATE OF SURGERY: 09/11/2017 SERVICE: Pulmonary Medicine. PROCEDURE: Right-sided pleural drainage with catheter insertion under ultrasound guidance. CONSENT: Risks and benefits of this procedure were discussed with the patient and family members jeromy or to initiating the procedure. STAFF PHYSICIAN: Steve Lopez M.D. MEDICATIONS: Lidocaine 1% without epinephrine, total quantity 7 mL. PREOPERATIVE DIAGNOSES: 1. Pleural effusion. 2. History of malignant ascites. POSTOPERATIVE DIAGNOSES: 1. Pleural effusion. 2. History of malignant ascites. DESCRIPTION OF PROCEDURE: A timeout was performed by the procedure team and the patient. The patien t was positively identified using name and date of . The procedure site was marked. Vital sign monitoring was accomplished by noninvasive hemodynamic monitoring, pulse oximetry, and telemetry. I n the seated position, the right posterior hemithorax was examined using ultrasound probe. The diaph ragm and pleural fluid was easily identified. The skin was prepped and draped in sterile fashion, an esthetized with 1% lidocaine without epinephrine. A finder needle was inserted into the pleural spac e with return of cloudy, essence-colored fluid. A pleural drainage catheter was inserted in the same l ocation. A total quantity of 2.3 liters of pleural fluid was withdrawn by syringe pump technique. A sample was sent for analysis. Evacuation was terminated because the patient had onset of some degre e of chest discomfort, which was recurrent after a brief interlude. At the end of the procedure, est imated pleural pressures, measured by manometry were -10 cm of pleural fluid. The intact catheter wa s withdrawn on exhalation and a sterile dressing was applied. The patient had stable vital signs thr oughout the entire procedure. ESTIMATED BLOOD LOSS: 2 mL. COMPLICATIONS: None.
[2017-09-12 05:33] LABS: #Eosinphils 0.1 thou/uL (0.0-0.7); #Lymphocytes 0.7 thou/uL (1.20-3.40); #Neutrophils 2.6 thou/uL (1.40-6.50); %Basophils 0.2 % (0.0-1.0); %Eosinophils 1.5 % (0.0-10.0); %Lymphocytes 20.5 % (21.0-51.0); %Monocytes 1.1 % (0.0-10.0); Mean Platelet Volume 6.5 fL (7.4-10.4); Red Blood Cell (RBC) Count 2.49 mill/uL (4.20-5.40); White Blood Cell (WBC) Count 3.4 thou/uL (4.8-10.8)
[2017-09-12 05:56] LABS: Anion Gap 9 mmol/L (10-20); BUN (Urea Nitrogen) 30 mg/dL (9.8-20.1); Calc. Creatinine Clearance 61 mL/min (70-130); Calcium 8.1 mg/dL (7.8-10.44); Carbon Dioxide 23 mmol/L (23-31); Chloride 106 mmol/L (98-107); Estimated GFR-MDRD 49
[2017-09-12] MEDS: HYDROcodone/Acetaminophen 10/325 mg Tablet PO PRN ×3 (07:44→20:49)
--- NOTE | 2017-09-12 08:05 | PRG ---
DATE OF SERVICE: 09/12/2017 Ms. Castro is complaining of some pain to her right flank today. She reports no shortness of breath. She does have some nausea, but no vomiting. OBJECTIVE: VITAL SIGNS: Temperature 98.6, BP 115/59. LUNGS: Reveal bilateral breath sounds. ABDOMEN: The abdomen reveals some tenderness to the right upper quadrant, but no evidence of rebound or guarding. It is still protuberant from the ascitic fluid. It is noted she underwent thoracentesis yesterday performed by Dr. Lopez, approximately 2.3 liters of pleural fluid was withdrawn. She states she is feeling better since that has happened. IMPRESSION: 1. Malignant ascites. 2. Probable malignant effusion. PLAN: We will go ahead and start paracentesis today. Unfortunately, she could not have any type of a permanent catheter placement unless she goes into hospice. We will go ahead and get fluid withdraw n and restart her back on Xarelto. Further followup will be with Oncology.
[2017-09-12] MEDS ORDERED: Lidocaine 1% MPF 2 ML VIAL ONE (09:57)
[2017-09-12] MEDS: Rivaroxaban 10 MG TAB PO SCH (11:50)
[2017-09-12] MEDS: Amlodipine 5 MG TAB PO SCH (11:56)
[2017-09-12] MEDS: Lisinopril 20 MG TAB PO SCH (11:56)
[2017-09-12] MEDS: Alogliptin Benzoate 25 MG TABLET PO SCH (11:57)
--- NOTE | 2017-09-12 12:10 | ULT ---
ULTRASOUND PARACENTESIS: Date: 09-12-17 History: Malignant ascites. FINDINGS: Informed consent for ultrasound guided paracentesis obtained prior to the procedure. Technique: Pre-procedural imaging demonstrates significant fluid throughout the abdomen and pelvis. Skin overlyi ng the midright abdomen is prepped and draped in normal sterile fashion and anesthetized with 1% buff ered Lidocaine. With direct sonographic guidance, a 5 Estonian Yueh needle was advanced into the peritoneal cavity and removal of the stylet yields blood ascites. 4 L were removed. The patient tolerated the procedure wel l. IMPRESSION: Successful ultrasound guided paracentesis. POS: [facility]
[2017-09-12] MEDS: Enoxaparin Sodium 30 MG/0.3 ML SYRINGE SC SCH (12:26)
--- NOTE | 2017-09-12 20:57 | PRG ---
DATE OF SERVICE: 09/12/2017 SERVICE: Pulmonary Medicine. INTERVAL HISTORY: The patient is doing fine from a respiratory standpoint. She currently denies any fevers, chills, nausea, or vomiting. Her breathing is much improved. The thoracentesis improved he r breathing in a dramatic fashion. She had an additional 8 liters of fluid removed from her abdomina l cavity today. Otherwise, she is returning to her usual state of health and she got her appetite ba ck. PHYSICAL EXAMINATION: VITAL SIGNS: Afebrile, pulse 90, blood pressure 98/57, respirations 16, saturation 96% on room air. GENERAL: The patient is awake and alert, in no apparent distress. LUNGS: Excellent air entry on the left. There is a slightly reduced air entry on the right base. N o prolonged expiratory phase or wheezing is appreciated. Dependent crackles are evident, particularl y on the right. HEART: Normal rate, regular. ABDOMEN: Soft. Nondistended. Bowel sounds are present. MUSCULOSKELETAL: No cyanosis or clubbing. There is no pitting on the bilateral lower extremities. NEUROLOGIC: Grossly nonfocal. LABORATORY DATA: WBC 3.4, hemoglobin 8.2, platelets 158,000. INR 1.6. Creatinine 1.11, BUN 30. Ba sic metabolic profile is otherwise unremarkable. Urinalysis is unremarkable. Pleural fluid is a lym phocytic exudate, but the non-hematologic cells yet to be characterized. The pleural pH is normal. LDH is slightly elevated as is the total protein making this a fairly weak exudate. Body fluid cultu res negative to date. Cytology on the fluid is currently pending. ASSESSMENT: 1. Adenocarcinoma, widely metastatic of origin. 2. Pleural effusion, large. 3. Malignant ascites. PLAN: The patient had a profound improvement in symptoms associated with a thoracentesis. As such, in the future if she has recurrence of this effusion, she would be a candidate for PleurX catheter. Sometimes these things can be placed on a 1-2 month basis and can actually cause auto-pleurodesis of this phase. If that happens in the outpatient setting, the catheter could then subsequently be remov ed. We will follow up on the cytology, but from a purely respiratory perspective, there is nothing t hat needs to keep her in the hospital. I will repeat hemoglobin tomorrow morning.
[2017-09-13 05:45] LABS: Anion Gap 8 mmol/L (10-20); BUN (Urea Nitrogen) 24 mg/dL (9.8-20.1); Calc. Creatinine Clearance 73 mL/min (70-130); Calcium 8.1 mg/dL (7.8-10.44); Carbon Dioxide 25 mmol/L (23-31); Chloride 106 mmol/L (98-107); Estimated GFR-MDRD 61
[2017-09-13 06:08] LABS: Band 2 % (5-11); Hematocrit 24.5 % (36.0-47.0); Macrocytosis SLIGHT = 6-15 cells (100X) (0-5/hpf); Mean Platelet Volume 6.6 fL (7.4-10.4); Neutrophil 67 % (42-75); Red Blood Cell (RBC) Count 2.45 mill/uL (4.20-5.40); Tear Drops SLIGHT = 2-5 cells (100X) (0-1/hpf); White Blood Cell (WBC) Count 1.3 thou/uL (4.8-10.8)
[2017-09-13 07:54] VITALS: BP 117/68; TEMP 97.6
[2017-09-13] MEDS: Amlodipine 5 MG TAB PO SCH (08:28)
[2017-09-13] MEDS: Alogliptin Benzoate 25 MG TABLET PO SCH (08:29)
[2017-09-13] MEDS: Lisinopril 20 MG TAB PO SCH (08:29)
[2017-09-13] MEDS: Nystatin Cream 30 GM TUBE TOP SCH (08:30)
--- NOTE | 2017-09-13 08:34 | PRG ---
DATE OF SERVICE: 09/13/2017 SUBJECTIVE: Ms. Castro is doing well. She is feeling much better. She had decreased respiratory dis tress with decreased abdominal pain. She has undergone thoracentesis and paracentesis. Pathology is still pending at this time. LABORATORY DATA: Her white blood count this morning is 1.3, hemoglobin 8.0, hematocrit 24.5. Chemis try shows sodium 134, creatinine 0.92. IMPRESSION: Malignant pleural effusion with malignant ascites secondary to ovarian cancer. Patient symptomatically improved. PLAN: We will discharge home. Continue home medications. Follow up with Dr. Marie.
[2017-09-13] MEDS ORDERED: Rivaroxaban 10 MG TAB PO SCH (09:00)
--- NOTE | 2017-09-13 19:13 | PRG ---
DATE OF SERVICE: 09/13/2017 SERVICE: Pulmonary Medicine. INTERVAL HISTORY: The patient is doing great from a cardiovascular and respiratory standpoint. She is breathing comfortably. She is looking forward to going home today. PHYSICAL EXAMINATION: VITAL SIGNS: Afebrile, pulse 90, blood pressure 117/68, respirations 16, saturation 96% on 2 liters nasal cannula. GENERAL: The patient is awake, alert, in no apparent distress. LUNGS: Excellent air entry with no prolonged expiratory phase. No crackles are appreciated today. HEART: Normal rate, regular. ABDOMEN: Soft, nontender, nondistended. Bowel sounds positive. MUSCULOSKELETAL: No cyanosis or clubbing. No pitting in the bilateral lower extremities. NEUROLOGIC: Grossly nonfocal. LABORATORY DATA: WBC 1.3, hemoglobin 8.0, platelets 115,000. INR 1.6. Creatinine 0.92. Basic meta bolic profile was otherwise unremarkable. Urinalysis is unremarkable. The fluid is consistent with a weak exudate. Cytology on the thoracentesis fluid has adenocarcinoma, consistent with the patient' s known metastatic disease. ASSESSMENT: 1. Adenocarcinoma, widely metastatic, of origin. 2. Malignant pleural effusion. 3. Malignant ascites. PLAN: The patient had a profound improvement in symptoms associated with a thoracentesis. As such, when and if she has recrudescence of her pleural effusion, she would be a very good candidate for a P leurX catheter. Sometimes, this will cause auto-pleurodesis of the pleural cavity and can subsequent ly be removed in 1-2 months if it stops putting fluid out. Recurrent thoracentesis will typically fa il after 3-4 taps. At this time, she has no further requirements for inpatient Pulmonary Critical Ca re opinion. I will sign off. Please call with additional questions or concerns moving forward.
== END 2017-09-13 10:18 | disposition home or self-care (01) | DRG 754 ==
LOC: ERS 18:22 → 2SE 20:20
PROVIDERS: ADMIT Family Medicine; ATTEND Family Medicine
PROC: 0W993ZX Drainage of Right Pleural Cavity, Percutaneous Approach, Diagnostic (ICD-10-PCS; principal; 2017-09-11)
PROC: 0W9G3ZZ Drainage of Peritoneal Cavity, Percutaneous Approach (ICD-10-PCS; 2017-09-12)
DX: C56.9 Malignant neoplasm of unspecified ovary (principal); J96.91 Respiratory failure, unspecified with hypoxia; R18.0 Malignant ascites; J91.0 Malignant pleural effusion; Z86.718 Personal history of other venous thrombosis and embolism; Z90.49 Acquired absence of other specified parts of digestive tract; Z90.710 Acquired absence of both cervix and uterus; Z88.5 Allergy status to narcotic agent; Z88.8 Allergy status to other drugs, medicaments and biological substances; Z85.42 Personal history of malignant neoplasm of other parts of uterus; E11.9 Type 2 diabetes mellitus without complications; I10 Essential (primary) hypertension
CPT/HCPCS: 36415; 36416; 49083; 71010; 74177; 80048; 80053; 81003; 82553; 82945; 83615; 83690; 83735; 83880; 83986; 84157; 84484; 85007; 85025; 85027; 85060; 85610; 85730; 87070; 87102; 87116; 87205; 87206; 88112; 88305; 89051; 93005; 96365; 96375; 96376; A4216; J1650; J2001; J2270; J2405; J3475; Q0162

== ENCOUNTER 2017-09-25 15:05 | Day surgery (SDC) | payer MEDICARE, OTHER ==
[2017-09-25] MEDS ORDERED: diphenhydrAMINE 25 MG CAP PO SCH (15:30)
[2017-09-25] MEDS ORDERED: Acetaminophen 500 MG TAB PO SCH (15:30)
[2017-09-25] MEDS ORDERED: Sodium Chloride 0.9% 20 ML ONE (18:48)
[2017-09-25 22:57] VITALS: BP 155/83; TEMP 98
[2017-09-26 02:26] LABS: #Lymphocytes 0.8 thou/uL (1.20-3.40); #Monocytes 0.3 thou/uL (0.11-0.59); #Neutrophils 0.7 thou/uL (1.40-6.50); %Basophils 0.3 % (0.0-1.0); %Eosinophils 1.8 % (0.0-10.0); %Lymphocytes 43.9 % (21.0-51.0); %Monocytes 14.9 % (0.0-10.0); Hematocrit 27.5 % (36.0-47.0); Mean Platelet Volume 7.5 fL (7.4-10.4); Red Blood Cell (RBC) Count 2.83 mill/uL (4.20-5.40); White Blood Cell (WBC) Count 1.8 thou/uL (4.8-10.8)
== END 2017-09-25 22:58 | disposition home or self-care (01) ==
LOC: ONC/OP 15:05
PROVIDERS: ATTEND Internal Medicine Hematology & Oncology
PROC: 30233N1 Transfusion of Nonautologous Red Blood Cells into Peripheral Vein, Percutaneous Approach (ICD-10-PCS; principal; 2017-09-25)
DX: D64.9 Anemia, unspecified (principal); D69.6 Thrombocytopenia, unspecified; C56.9 Malignant neoplasm of unspecified ovary; C78.6 Secondary malignant neoplasm of retroperitoneum and peritoneum; I10 Essential (primary) hypertension; E11.9 Type 2 diabetes mellitus without complications; Z88.5 Allergy status to narcotic agent; Z88.8 Allergy status to other drugs, medicaments and biological substances
CPT/HCPCS: 36415; 36430; 80053; 82248; 83615; 84100; 84550; 85025; 86304; 86850; 86900; 86901; A4216; J1642; P9016

== ENCOUNTER 2017-09-27 10:25 | Day surgery (SDC) | payer MEDICARE, OTHER ==
[2017-09-26 10:18] VITALS: BMI 30.6
[~2017-09-27 10:25] MED LIST changes: +FLU VACC TS2017-18 (>65YR) 0.5 ML SYRINGE IM ONE; -Iopamidol 370 76% 100 ML VIAL ONE
[2017-09-27 12:05] VITALS: BP 123/59; TEMP 98.1
--- NOTE | 2017-09-27 16:34 | ULT ---
ULTRASOUND GUIDED PARACENTESIS THERAPEUTIC: 09/27/17 HISTORY: 67-year-old female with malignant ascites due to ovarian cancer with intraperitoneal metastasis. TECHNIQUE: Signed informed consent obtained. Adequate pocket of (echogenic) free fluid identified in the right l ateral aspect of the abdominal cavity. Overlying skin prepped and draped in the usual sterile fashion . 25 gauge needle used to apply buffered lidocaine superficially and deeply. Under ultrasound guidanc e, 25 gauge needle was used to apply buffered lidocaine (first to the skin) through the right lateral abdominal wall. A 5 Bolivian Yueh catheter with stylet was advanced in tandem with the 25 gauge needle . The Yueh stylet and the 25 gauge needle were removed. The Yueh catheter was connected to a series o f evacuated bottles via plastic tubing. After drainage of fluid, the Yueh catheter was removed. Patie nt tolerated the procedure well. No complications. FINDINGS: Prior to the procedure, images demonstrate a moderate to large pocket of free fluid in the right late ral aspect of the abdominal cavity, and a small amount of free fluid in the left lower quadrant. Intr aprocedural images demonstrate first the 25 gauge needle tip within the peritoneal cavity, then the 5 Bolivian Yueh catheter. A total of 5200 mL of hemorrhagic fluid was drained. Postprocedure image of th e right lower quadrant demonstrates a minimal amount of residual fluid. IMPRESSION: 1. Successful therapeutic paracentesis. 2. Drainage of 5.2 liters of hemorrhagic ascites fluid. POS: [facility]
== END 2017-09-27 11:35 | disposition home or self-care (01) ==
LOC: ULT 10:25
PROVIDERS: ATTEND Internal Medicine Hematology & Oncology
DX: C56.2 Malignant neoplasm of left ovary (principal); R18.0 Malignant ascites; C78.6 Secondary malignant neoplasm of retroperitoneum and peritoneum; E11.9 Type 2 diabetes mellitus without complications; I10 Essential (primary) hypertension; D64.9 Anemia, unspecified; D69.6 Thrombocytopenia, unspecified; Z88.5 Allergy status to narcotic agent; Z88.8 Allergy status to other drugs, medicaments and biological substances; Z90.49 Acquired absence of other specified parts of digestive tract; Z90.710 Acquired absence of both cervix and uterus; Z98.890 Other specified postprocedural states; Z79.01 Long term (current) use of anticoagulants; Z79.84 Long term (current) use of oral hypoglycemic drugs; Z79.891 Long term (current) use of opiate analgesic; Z79.899 Other long term (current) drug therapy
CPT/HCPCS: 49083

== ENCOUNTER 2017-10-17 10:56 | Emergency (ER) | payer MEDICARE, OTHER ==
[2017-10-17 11:48] LABS: Hemoglobin 7.7 g/dL (12.0-16.0); Mean Corpuscular HGB CONC 32.1 g/dL (32.0-36.0); Mean Corpuscular Hemoglobin 31.6 pg (27.0-31.0); Mean Corpuscular Volume 98.4 fl (81.0-99.0); Red Blood Cell (RBC) Count 2.43 mill/uL (4.20-5.40); White Blood Cell (WBC) Count 6.7 thou/uL (4.8-10.8)
[2017-10-17 12:01] LABS: ALT (SGPT) 10 U/L (8-55); AST (SGOT) 15 U/L (5-34); Albumin 2.7 g/dL (3.4-4.8); Alkaline Phosphatase 72 U/L (40-150); Anion Gap 15 mmol/L (10-20); BUN (Urea Nitrogen) 31 mg/dL (9.8-20.1); Bilirubin, Total 0.2 mg/dL (0.2-1.2); CK (CPK) 86 U/L (29-168); Calc. Creatinine Clearance 0 mL/min (70-130); Calcium 7.8 mg/dL (7.8-10.44); Carbon Dioxide 23 mmol/L (23-31); Chloride 105 mmol/L (98-107); Estimated GFR-MDRD 43; Globulin 3.3 g/dL (2.4-3.5); Glucose 95 mg/dL (80-115); Lipase 13 U/L (8-78); Potassium 3.8 mmol/L (3.5-5.1); Sodium 139 mmol/L (136-145)
[2017-10-17 12:02] LABS: Band 41 % (5-11); Bite Cells SLIGHT = 2-5 cells (100X) (0-1/hpf); Dohle Bodies SLIGHT; Eosinophils 2 % (0-10); Lymphocytes 14 % (21-51); MDiff Complete? YES; Mean Platelet Volume 10.9 fL (7.4-10.4); Metamyelocyte 1 % (0-0); Monocytes 2 % (0-10); Neutrophil 40 % (42-75); PLT Morphology Comment Appears Decreased; Platelet Count 48 thou/uL (130-400); Polychromasia SLIGHT = 2-3 cells (100X) (0-2/hpf); RBC Distribution Width 15.3 % (11.5-14.5); Toxic Granulation SLIGHT
[2017-10-17 12:03] LABS: CKMB 1.6 ng/mL (0-6.6); Troponin I 0.014 ng/mL (< 0.028)
--- NOTE | 2017-10-17 12:29 | RAD ---
TWO VIEWS OF THE CHEST: 10/17/2017 HISTORY: Abdominal pain and swelling. COMPARISON: 09/10/2017 FINDINGS: There is a small/moderate right pleural effusion. There is partial opacification of the right middle and right lower lobes. The pleural fluid is markedly decreased in size when compared to the 017 exam. There is a right-sided Port-A-Cath, its superior portion incompletely imaged. The left tyler ng appears clear. IMPRESSION: Increased pleural and parenchymal opacity in the right lung base, aeration improved when compared to the 09/10/2017 exam. The right basilar density may signify pleural effusion with associated parenchymal volume loss. A de gree of infectious pneumonitis or aspiration cannot be excluded. POS: [facility]
--- NOTE | 2017-11-04 22:09 | EKG ---
Test Reason : Blood Pressure : / mmHG Vent. Rate : 105 BPM Atrial Rate : 105 BPM P-R Int : 146 ms QRS Dur : 066 ms QT Int : 314 ms P-R-T Axes : 059 016 101 degrees QTc Int : 415 ms Sinus tachycardia Anteroseptal infarct , age undetermined Abnormal ECG Confirmed by KENDRA HUTCHINSON, VIANNEY ([id number]), editorial project manager IVAN DYER ([id number]) on 11/04/2017 10:08:41 PM Referred By: Confirmed By:VIANNEY GARDNER MD
== END 2017-10-17 14:44 | disposition home or self-care (01) ==
LOC: ERS 10:56
DX: R14.0 Abdominal distension (gaseous) (principal); E11.9 Type 2 diabetes mellitus without complications; I10 Essential (primary) hypertension; Z85.42 Personal history of malignant neoplasm of other parts of uterus
CPT/HCPCS: 36415; 49082; 71046; 80053; 82553; 83690; 83880; 84484; 85025; 93005

== ENCOUNTER 2017-10-23 10:01 | Day surgery (SDC) | payer MEDICARE, OTHER ==
[2017-10-23] MEDS ORDERED: Acetaminophen 500 MG TAB PO SCH (10:15)
[2017-10-23] MEDS ORDERED: diphenhydrAMINE 25 MG CAP PO SCH (10:15)
[2017-10-23] MEDS ORDERED: Sodium Chloride 0.9% 20 ML ONE (10:31)
[2017-10-23 16:53] LABS: Hemoglobin 8.8 g/dL (12.0-16.0); Mean Corpuscular HGB CONC 32.8 g/dL (32.0-36.0); Mean Corpuscular Hemoglobin 31.6 pg (27.0-31.0); Mean Corpuscular Volume 96.4 fl (81.0-99.0); Mean Platelet Volume 7.8 fL (7.4-10.4); Platelet Count 208 thou/uL (130-400); RBC Distribution Width 14.8 % (11.5-14.5); Red Blood Cell (RBC) Count 2.78 mill/uL (4.20-5.40)
[2017-10-23 17:19] VITALS: BP 157/74; TEMP 97.9
[2017-10-23 17:39] LABS: Band 18 % (5-11); Lymphocytes 13 % (21-51); MDiff Complete? YES; Metamyelocyte 3 % (0-0); Monocytes 6 % (0-10); Myelocyte 2 % (0-0); Neutrophil 57 % (42-75); Nucleated RBC 2 % (0); Ovalocytes SLIGHT = 2-5 cells (100X) (0-1/hpf); PLT Morphology Comment Appears Adequate; Polychromasia SLIGHT = 2-3 cells (100X) (0-2/hpf); Reactive Lymphocytes 1 % (0-10); Toxic Granulation SLIGHT
== END 2017-10-23 16:05 | disposition home or self-care (01) ==
LOC: ONC/OP 10:01
PROVIDERS: ATTEND Internal Medicine Hematology & Oncology
PROC: 30233N1 Transfusion of Nonautologous Red Blood Cells into Peripheral Vein, Percutaneous Approach (ICD-10-PCS; principal; 2017-10-23)
DX: D64.9 Anemia, unspecified (principal); D69.6 Thrombocytopenia, unspecified; E11.9 Type 2 diabetes mellitus without complications; I10 Essential (primary) hypertension; Z88.5 Allergy status to narcotic agent; Z88.8 Allergy status to other drugs, medicaments and biological substances; Z90.49 Acquired absence of other specified parts of digestive tract; Z98.890 Other specified postprocedural states
CPT/HCPCS: 36415; 36430; 80053; 82248; 83615; 84100; 84550; 85025; 86304; 86850; 86900; 86901; A4216; J1642; P9016

== ENCOUNTER 2017-11-02 09:53 | Day surgery (SDC) | payer MEDICARE, OTHER ==
[~2017-11-02 09:53] MED LIST changes: +Prevnar 13-Val Conj/PF 0.5 ML SYRINGE IM ONE
[2017-11-02 10:13] LABS: INR-International Normal Ratio 1.1; PTT 39.9 SEC (22.9-36.1); Prothrombin Time 14.6 SEC (12.0-14.7)
--- NOTE | 2017-11-02 13:03 | ULT ---
ULTRASOUND GUIDED PARACENTESIS: INDICATION: Ascites. TECHNIQUE: Informed consent was obtained. Preprocedure ultrasound demonstrated a large pocket within the right lower quadrant of the abdomen. The site was prepped and draped in the usual sterile fashion. Buffer ed 1% Lidocaine was administered to the overlying subcutaneous tissues. Under ultrasound guidance, a 5 Kyrgyz Yueh catheter was guided down into the large collection of the right lower quadrant. Five liters of peritoneal fluid was removed from the peritoneal cavity. The patient tolerated the procedu re without difficulty. IMPRESSION: Successful ultrasound-guided paracentesis removal of 5 L of peritoneal fluid. POS: [facility]
[2017-11-02 14:02] VITALS: TEMP 97.8
[2017-11-02 14:03] VITALS: BMI 29.5
[2017-11-02 14:06] VITALS: BP 130/63
== END 2017-11-02 11:50 | disposition home or self-care (01) ==
LOC: ULT 09:53
PROVIDERS: ATTEND Internal Medicine Hematology & Oncology
PROC: 0W9G3ZZ Drainage of Peritoneal Cavity, Percutaneous Approach (ICD-10-PCS; principal; 2017-11-02)
PROC: BW40ZZZ Ultrasonography of Abdomen (ICD-10-PCS; 2017-11-02)
DX: C56.2 Malignant neoplasm of left ovary (principal); R18.0 Malignant ascites; D70.1 Agranulocytosis secondary to cancer chemotherapy; E11.9 Type 2 diabetes mellitus without complications; I10 Essential (primary) hypertension; Z79.01 Long term (current) use of anticoagulants; Z79.84 Long term (current) use of oral hypoglycemic drugs; Z79.899 Other long term (current) drug therapy; Z88.5 Allergy status to narcotic agent; Z88.8 Allergy status to other drugs, medicaments and biological substances; Z90.49 Acquired absence of other specified parts of digestive tract; Z98.890 Other specified postprocedural states
CPT/HCPCS: 49083; 85610; 85730

== ENCOUNTER 2017-11-09 12:54 | Day surgery (SDC) | payer MEDICARE, OTHER ==
[2017-11-09] MEDS ORDERED: Acetaminophen 500 MG TAB PO SCH (14:00)
[2017-11-09] MEDS ORDERED: diphenhydrAMINE 25 MG CAP PO SCH (14:00)
[2017-11-09] MEDS ORDERED: Sodium Chloride 0.9% 20 ML ONE (14:23)
[2017-11-09 19:50] VITALS: BP 121/60; TEMP 98
[2017-11-09 20:38] LABS: Anisocytosis SLIGHT = 6-15 cells (100X) (0-5/hpf); Band 14 % (5-11); Hemoglobin 8.8 g/dL (12.0-16.0); Lymphocytes 11 % (21-51); MDiff Complete? YES; Mean Corpuscular HGB CONC 33.1 g/dL (32.0-36.0); Mean Corpuscular Hemoglobin 31.4 pg (27.0-31.0); Mean Corpuscular Volume 94.7 fl (81.0-99.0); Mean Platelet Volume 7.5 fL (7.4-10.4); Metamyelocyte 1 % (0-0); Monocytes 2 % (0-10); Neutrophil 72 % (42-75); PLT Morphology Comment Appears Decreased; Platelet Count 102 thou/uL (130-400); RBC Distribution Width 15.3 % (11.5-14.5); Red Blood Cell (RBC) Count 2.79 mill/uL (4.20-5.40); Toxic Granulation SLIGHT; White Blood Cell (WBC) Count 7.7 thou/uL (4.8-10.8)
== END 2017-11-09 19:53 | disposition home or self-care (01) ==
LOC: ONC/OP 12:54
PROVIDERS: ATTEND Internal Medicine Hematology & Oncology
PROC: 30233N1 Transfusion of Nonautologous Red Blood Cells into Peripheral Vein, Percutaneous Approach (ICD-10-PCS; principal; 2017-11-09)
DX: D64.9 Anemia, unspecified (principal); D69.59 Other secondary thrombocytopenia; Z88.5 Allergy status to narcotic agent; Z88.8 Allergy status to other drugs, medicaments and biological substances
CPT/HCPCS: 36430; 85025; 86850; 86900; 86901; A4216; J1642; P9016

== ENCOUNTER 2017-11-23 09:56 | Day surgery (SDC) | payer MEDICARE, OTHER ==
[2017-11-22 14:03] VITALS: BMI 29.5
[2017-11-23] MEDS ORDERED: Sodium Bicarbonate 2.5 MEQ/5 ML VIAL ONE (10:39)
[2017-11-23 12:21] VITALS: BP 120/66; TEMP 97.9
--- NOTE | 2017-11-23 16:27 | ULT ---
ULTRASOUND GUIDED PARACENTESIS 11/23/17 Informed consent was obtained from the patient. A large pocket of free intraperitoneal fluid was loca lized in the right lateral peritoneum. The overlying skin was prepped and draped in the usual sterile manner. A 1% lidocaine solution was used to anesthetize the overlying soft tissues. A small dermatot davonte was made. Using ultrasound guidance, the right peritoneal fluid collection was accessed using a 5 Greenlandic Yueh needle. A total of 6100 mL of bloody peritoneal fluid was removed without difficulty. IMPRESSION: Successful ultrasound guided paracentesis. POS: [facility]
== END 2017-11-23 11:35 | disposition home or self-care (01) ==
LOC: ULT 09:56
PROVIDERS: ATTEND Internal Medicine Hematology & Oncology
DX: C56.2 Malignant neoplasm of left ovary (principal); R18.8 Other ascites; D70.1 Agranulocytosis secondary to cancer chemotherapy; E11.9 Type 2 diabetes mellitus without complications; I10 Essential (primary) hypertension; Z79.01 Long term (current) use of anticoagulants; Z79.84 Long term (current) use of oral hypoglycemic drugs; Z79.899 Other long term (current) drug therapy; Z88.5 Allergy status to narcotic agent; Z88.8 Allergy status to other drugs, medicaments and biological substances; Z90.49 Acquired absence of other specified parts of digestive tract; Z98.890 Other specified postprocedural states
CPT/HCPCS: 49083

== ENCOUNTER 2017-12-14 09:42 | Day surgery (SDC) | payer MEDICARE, OTHER ==
[2017-12-13 15:41] VITALS: BMI 29.5
[2017-12-14 10:07] LABS: #Eosinphils 0.1 thou/uL (0.0-0.7); #Lymphocytes 0.7 thou/uL (1.20-3.40); #Monocytes 0.7 thou/uL (0.11-0.59); #Neutrophils 7.1 thou/uL (1.40-6.50); %Basophils 0.2 % (0.0-1.0); %Eosinophils 1.7 % (0.0-10.0); %Lymphocytes 7.8 % (21.0-51.0); %Monocytes 8.5 % (0.0-10.0); %Neutrophils 81.9 % (42.0-75.0); Hemoglobin 6.3 g/dL (12.0-16.0); Mean Corpuscular HGB CONC 32.6 g/dL (32.0-36.0); Mean Corpuscular Hemoglobin 31.8 pg (27.0-31.0); Mean Corpuscular Volume 97.7 fl (81.0-99.0); Mean Platelet Volume 6.1 fL (7.4-10.4); Platelet Count 418 thou/uL (130-400); RBC Distribution Width 17.9 % (11.5-14.5); Red Blood Cell (RBC) Count 1.98 mill/uL (4.20-5.40); White Blood Cell (WBC) Count 8.7 thou/uL (4.8-10.8)
[2017-12-14 10:16] LABS: INR-International Normal Ratio 1.1; PTT 41.9 SEC (22.9-36.1); Prothrombin Time 13.9 SEC (12.0-14.7)
--- NOTE | 2017-12-14 14:07 | ULT ---
ULTRASOUND GUIDED PARACENTESIS: Date: 12/14/17 HISTORY: Ascites. COMPARISON: 11/23/17. FINDINGS: Technically successful ultrasound guided paracentesis. A total of 6 liters of bloody ascites was aspi rated. The patient tolerated the procedure well. No immediate or postprocedure complication. TECHNIQUE: Consent obtained to perform an ultrasound guided paracentesis. The patient's abdomen was evaluated. R ight lower quadrant was deemed appropriate. Skin was prepped and draped in the sterile fashion. 1% li docaine, buffered with sodium bicarbonate, was used for local anesthesia. Under ultrasound guidance, a 5 Greenlandic 7.0 cm Zyncdeh catheter was advanced into the peritoneal space. Via vacuum bottles, a total o f 6 liters of blood-tinged ascites was aspirated. The patient tolerated the procedure well. No immedi ate or postprocedure complications. Postprocedure imaging demonstrates near complete drainage of the ascites. IMPRESSION: Technically successful ultrasound guided paracentesis. POS: [facility]
[2017-12-14 14:14] VITALS: BP 120/59; TEMP 97.7
== END 2017-12-14 11:50 | disposition home or self-care (01) ==
LOC: ULT 09:42
PROVIDERS: ATTEND Internal Medicine Hematology & Oncology
PROC: 0W9G3ZZ Drainage of Peritoneal Cavity, Percutaneous Approach (ICD-10-PCS; principal; 2017-12-14)
PROC: BW40ZZZ Ultrasonography of Abdomen (ICD-10-PCS; 2017-12-14)
DX: R18.8 Other ascites (principal); E11.9 Type 2 diabetes mellitus without complications; I10 Essential (primary) hypertension; Z92.21 Personal history of antineoplastic chemotherapy; Z86.718 Personal history of other venous thrombosis and embolism; Z88.5 Allergy status to narcotic agent; Z88.8 Allergy status to other drugs, medicaments and biological substances; Z79.01 Long term (current) use of anticoagulants; Z79.84 Long term (current) use of oral hypoglycemic drugs; Z79.899 Other long term (current) drug therapy
CPT/HCPCS: 36415; 49083; 85025; 85610; 85730

== ENCOUNTER 2017-12-15 09:07 | Day surgery (SDC) | payer MEDICARE, OTHER ==
[2017-12-15] MEDS ORDERED: diphenhydrAMINE 25 MG CAP PO SCH (09:30)
[2017-12-15] MEDS ORDERED: Acetaminophen 500 MG TAB PO SCH (09:30)
[2017-12-15] MEDS ORDERED: Sodium Chloride 0.9% 20 ML ONE (13:06)
[2017-12-15 13:22] VITALS: BP 115/56; TEMP 98.3
[2017-12-15 16:44] LABS: #Eosinphils 0.2 thou/uL (0.0-0.7); #Lymphocytes 0.9 thou/uL (1.20-3.40); #Monocytes 0.7 thou/uL (0.11-0.59); #Neutrophils 6.8 thou/uL (1.40-6.50); %Eosinophils 1.9 % (0.0-10.0); %Monocytes 7.8 % (0.0-10.0); %Neutrophils 80.3 % (42.0-75.0); Hemoglobin 8.3 g/dL (12.0-16.0); Mean Corpuscular HGB CONC 32.9 g/dL (32.0-36.0); Mean Corpuscular Hemoglobin 30.4 pg (27.0-31.0); Mean Corpuscular Volume 92.5 fl (81.0-99.0); Mean Platelet Volume 6.7 fL (7.4-10.4); Platelet Count 390 thou/uL (130-400); RBC Distribution Width 18.8 % (11.5-14.5); Red Blood Cell (RBC) Count 2.73 mill/uL (4.20-5.40); White Blood Cell (WBC) Count 8.5 thou/uL (4.8-10.8)
== END 2017-12-15 15:31 | disposition home or self-care (01) ==
LOC: ONC/OP 09:07
PROVIDERS: ATTEND Internal Medicine Hematology & Oncology
PROC: 30233N1 Transfusion of Nonautologous Red Blood Cells into Peripheral Vein, Percutaneous Approach (ICD-10-PCS; principal; 2017-12-15)
DX: C56.9 Malignant neoplasm of unspecified ovary (principal); D63.0 Anemia in neoplastic disease; J91.0 Malignant pleural effusion; R18.8 Other ascites; Z88.5 Allergy status to narcotic agent; Z88.8 Allergy status to other drugs, medicaments and biological substances
CPT/HCPCS: 36430; 85025; 86850; 86900; 86901; A4216; J1642; P9016

== ENCOUNTER 2017-12-30 20:19 | Observation (INO) | payer MEDICARE, OTHER ==
[2017-12-30] MEDS ORDERED: Metoclopramide HCl 10 MG/2 ML VIAL ONE ×2 (20:41→21:16)
[2017-12-30] MEDS ORDERED: Morphine 4 MG/ML VIAL ONE ×2 (20:41→21:16)
[2017-12-30] MEDS ORDERED: Ondansetron HCl/PF 4 MG/2 ML Vial ONE ×2 (20:43→21:17)
--- NOTE | 2017-12-30 23:29 | PDOC.FPRHP ---
- History of Present Illness Chief Complaint: N/V, Shortness of breath History of Present Illness: This is a 67 year old female with PMH of uterine cancer who is currently a patient at [facility] that presents with N/V, shortness of breath, and abdominal pain. She states this tends to happen anytime she gets excess fluid in her abdomen. She has a therapeutic paracentesis performed every 2 weeks at [facility]. They usually drain approximately 6L of fluid. Per patient, it has been closer to three weeks since her last tap. She otherwise feels at baseline. She was given morphine 8 mg in the ED, zofran, and reglan which helped her symptoms. ED Course: Patient given 8 mg morphine, 10 mg reglan, and 4 mg zofran int he ED. - Allergies/Adverse Reactions Allergies Allergy/AdvReac Type Severity Reaction Status Date / Time atenolol Allergy Verified 12/31/17 01:44 codeine Allergy RASH/HEADAC Verified 12/31/17 01:44 HES metformin Allergy HEADACHE/VO Verified 12/31/17 01:44 MITING propoxyphene napsylate Allergy RASH/HEADAC Verified 12/31/17 01:44 [From Darplacidot-N] HES - Home Medications Medication Instructions Recorded Confirmed Type Rivaroxaban [Xarelto] 10 mg PO DAILY 10/26/16 12/31/17 History Ondansetron [Ondansetron ODT] 4 mg PO Q6HR PRN 09/01/17 12/31/17 History HYDROcodone/Acetaminophen [[place] 2 each PO BID 09/11/17 12/31/17 History 10-325 Tablet] Furosemide [Lasix] 20 mg PO DAILY PRN 09/26/17 12/31/17 History - History PMHx: Uterine CA, HTN, Diabetes mellitus type II PSHx: Total hysterectomy, Colostomy, Cholecystectomy, Mediport placed 2 years ago, Bilateral carpal tunnel release surgery, Hernia repair, IVC filter FHx: Non-contributory Social: Currently a patient of [facility]. Lives at home alone, but her son lives next door. No smoking history. - Review of Systems General: denies: fever/chills, night sweats Eyes: denies: eye pain, vision changes ENT: denies: nasal congestion Respiratory: reports: shortness of breath. denies: cough Cardiovascular: denies: chest pain, palpitation Gastrointestinal: reports: nausea, vomiting, abdominal pain, other (Abdominal distention). denies: constipation Genitourinary: denies: incontinence, dysuria Skin: reports: other (Abdominal masses 2/2 cancer). denies: rashes Musculoskeletal: denies: pain Neurological: denies: syncope Psychological: denies: anxiety - Vital signs BP: [133/76] HR: [96] RR: [18] Tmax: [97.9] Pox: [96]% on [RA] Wt: [65.77 kg] - Physical Exam Constitutional: NAD, awake, alert and oriented HEENT: normocephalic and atraumatic, PERRLA, EOMI, no scleral icterus Neck: supple Heart: RRR, normal S1/S2, no murmurs/rubs/gallops, pulses present, no edema Lungs: CTAB, no respiratory distress, good air movement Abdomen: soft, bowel sounds present -Abdomen: Mildly tender to palpation. Distended abdomen. Visible and palpable abdominal mass in midline measuring approximately size of softball. Largest pocket of fluid visualized with ultrasound in RLQ. Neurological: no focal deficit, CN II-XII intact Skin: no rash/lesions Psychiatric: normal mood and affect, good judgment and insight FMR H&P: A/P - Problem List (1) Ascites Current Visit: No Status: Acute Code(s): R18.8 - OTHER ASCITES Assessment and Plan: - Therapeutic tap performed in ED, unsuccessful - Got off approximately 300 mL of ascitic fluid - Patient normally gets 6 L off with each tap under IR - Plan to consult IR for therapeutic tap in the AM - No labs necessary at this time; patient is otherwise stable - Will provide morphine PRN for pain - Zofran PRN for N/V (2) Uterine cancer Current Visit: Yes Status: Acute Code(s): C55 - MALIGNANT NEOPLASM OF UTERUS , PART UNSPECIFIED Qualifiers: Malignant neoplasm of body of uterus location: unspecified location Assessment and Plan: - Currently on hospice at [facility] - Pain control with morphine while in hospital; continue home medications upon discharge - Zofran PRN for nausea and vomiting (3) HTN (hypertension) Current Visit: Yes Status: Acute Code(s): I10 - ESSENTIAL (PRIMARY) HYPERTENSION Assessment and Plan: - Patient recently taken off medication by PCP - Will continue to monitor BP while in hospital (4) Diabetes mellitus type II, controlled Current Visit: Yes Status: Acute Code(s): E11.9 - TYPE 2 DIABETES MELLITUS WITHOUT COMPLICATIONS Assessment and Plan: - Well controlled - Recently taken off of diabetes medications by PCP FMR H&P: Upper Level - Pertinent history 67 yo CF w/ PMH of uterine CA s/p hysterectomy who presents from hospice due to abdominal distension. Pt notes she usually gets therapeutic paracenteses done every 2 weeks but that it has been closer to 3 weeks since her last paracentesis. Pt endorses some nausea and abdominal pain at baseline but otherwise has no complaints. - Pertinent findings Bedside vitals reviewed and within normal limits. Gen: NAD, cachetic, A&Ox3 Abd: mod distension, softball size mass in mid abdomen, no fluid wave, largest fluid pocket RLQ via ultrasound - Plan Date/Time: 12/30/17 [id number] I, Bryan Thapa MD, have evaluated this patient and agree with findings/plan as outlined by mechanical intern resident. Pertinent changes/additions are listed here. 1. Abdominal distension - unsuccessful paracentesis performed at bedside in ED. Will observe patient overnight and schedule for therapeutic paracentesis via IR in AM. IV pain and nausea medication PRN. Attending Addendum - Attending Addendum Date/Time: 12/31/17 [id number] I personally evaluated the patient and discussed the management with Dr. Sears. I agree with the History, Examination, Assessment and Plan documented above with any addition or exceptions noted below. The patient underwent paracentesis with only 300 ml of fluid removed last night. Will get IR to repeat paracentesis and then patient should be able to discharge home. She has nausea this morning and notes zofran usually helps.
[2017-12-31] MEDS ORDERED: HYDROcodone/Acetaminophen 5/325 mg Tablet PO PRN ×2 (01:36)
[2017-12-31] MEDS ORDERED: Ondansetron ODT 4 MG TAB SL PRN (01:36)
[2017-12-31] MEDS ORDERED: Ondansetron HCl/PF 4 MG/2 ML Vial IVP PRN (01:36)
[2017-12-31] MEDS ORDERED: Acetaminophen 325 MG TAB PO PRN ×2 (01:36→01:59)
[2017-12-31 01:56] VITALS: BMI 28.5
[2017-12-31] MEDS ORDERED: Furosemide 20 MG TAB PO PRN (03:30)
[2017-12-31] MEDS: Ondansetron HCl/PF 4 MG/2 ML Vial IVP PRN ×3 (04:48→14:13)
[2017-12-31] MEDS: Morphine 4 MG/ML VIAL SLOW IVP PRN ×2 (04:57→14:01)
--- NOTE | 2017-12-31 08:44 | ULT ---
RIGHT LOWER EXTREMITY VENOUS DOPPLER: Date: 12/31/17 PROVIDED CLINICAL HISTORY: Right lower extremity swelling. FINDINGS: Farrell scale and color Doppler sonography with spectral analysis performed of the right common femoral, femoral, popliteal, posterior tibial, greater saphenous, and profunda femoral veins. There is lumina l echogenicity and partial noncompressibility involving the proximal right femoral vein, as well as p ortion of the right popliteal vein. There is eccentric echogenicity seen adherent to the campos of the mid right femoral vein as well. IMPRESSION: Findings compatible with deep venous thrombosis involving the right lower extremity, as described abo ve. Findings discussed with Francine, the patient's nurse, at 0755 hours on 12/31/14. CODE CR. POS: [facility]
[2017-12-31] MEDS ORDERED: Rivaroxaban 10 MG TAB PO SCH (09:00)
[2017-12-31] MEDS ORDERED: Sodium Bicarbonate 2.5 MEQ/5 ML VIAL ONE (11:02)
--- NOTE | 2017-12-31 13:04 | ULT ---
ULTRASOUND GUIDED PARACENTESIS: Date: 12/31/17 COMPARISON: 12/14/17. HISTORY: Ascites. FINDINGS: Technically successful ultrasound guided paracentesis. A total of 5 liters of slightly dark, yellow-c olored ascites was aspirated. The patient tolerated the procedure well. No immediate or postprocedure complications. TECHNIQUE: Consent obtained for ultrasound guided paracentesis. The patient's right lower quadrant was deemed ap propriate. Skin was prepped and draped in the sterile fashion. 1% lidocaine, buffered with sodium bic arbonate, was used for local anesthesia. Under ultrasound guidance, a 5 Irish 7 cm [id number] catheter was advanced into the peritoneal space. A total of 5 liters of slightly dark, yellow-colored ascites was aspirated. The patient tolerated the procedure well. No immediate or postprocedure complication. IMPRESSION: Technically successful ultrasound guided paracentesis. POS: [facility]
[2017-12-31 13:37] VITALS: BP 143/72; TEMP 96.7
--- NOTE | 2017-12-31 14:02 | DIS-2 ---
DATE OF ADMISSION: 12/31/2017 DATE OF DISCHARGE: 12/31/2017 RESIDENT: Emiliano William MD ADMITTING ATTENDING: Dr. Macias. DISCHARGE ATTENDING: Dr. Macias. CONSULTATIONS: None. PROCEDURES: 1. Therapeutic paracentesis done in the ER, unsuccessful, got off approximately 300 mL of ascitic fl uid. 2. Vascular study done on 12/31/2017. Impression: Findings compatible with deep vein thrombosis in volving the right lower extremity including proximal right femoral vein as well as portions of the ri ght popliteal vein. 3. Paracentesis ultrasound on 12/31/2017. Ultrasound guided total of 5 mL of slightly dark yellow c olor ascitic fluid was aspirated. The patient tolerated the procedure well, no immediate or postproc edure complication. CONSULTS: None. PRIMARY DIAGNOSIS: Ascites secondary to uterine cancer. SECONDARY DIAGNOSES: 1. Uterine cancer. 2. Hypertension, well controlled. 3. Diabetes type 2, well controlled. DISCHARGE MEDICATIONS: Resume all home medications. 1. Xarelto 10 mg p.o. daily. 2. Ondansetron 4 mg p.o. q.6 hours p.r.n. 3. [place] 10/325 two tabs p.o. b.i.d. 4. Furosemide 20 mg p.o. daily p.r.n. 5. Tylenol 650 mg p.o. q.4 hours p.r.n. No new medications. HISTORY OF PRESENT ILLNESS AND HOSPITAL COURSE: Penny Castro is a 67-year-old female with past medica l history of uterine cancer who is currently a patient at [facility] who presents to the E D with nausea, vomiting, shortness of breath and abdominal pain. She states that this tends to happe n every time she gets excessive fluid in her abdomen. She has therapeutic paracenteses performed astrid ry 2 weeks at [facility]. They usually drain approximately 6 liters of fluid. Per the patient, it has been closed for 3 weeks since her last tap. She otherwise feels fine. Denies any fevers. S he was given morphine 8 mg in the ED Zofran and Reglan which improved her symptoms. In the ED, thera peutic tap was performed, was unsuccessful, was only able to get off approximately 300 mL of ascitic fluid. Patient was placed on the obs in the hospital with plan to consult Radiology for therapeutic tap in the morning. Ultrasound was notified in the morning and ultrasound guided paracentesis was pe rformed and approximately 5 liters of ascitic fluid was pulled off the patient. Patient tolerated th e procedure well. Symptoms improved and the patient was cleared for discharge back to [facility]. DISPOSITION: The patient's overall prognosis is poor secondary to the uterine cancer, but patient's symptoms were much improved after the therapeutic paracentesis. She was discharged back to [facility]. DISCHARGE INSTRUCTIONS: 1. Location: [facility]. 2. Diet: Diabetic diet. 3. Activity: As tolerated. 4. Follow up with primary care provider as needed.
[2018-01-01] MEDS ORDERED: FLU VACC TS2017-18 (>65YR) 0.5 ML SYRINGE IM ONE (09:00)
[2018-01-01] MEDS ORDERED: Prevnar 13-Val Conj/PF 0.5 ML SYRINGE IM ONE (09:00)
== END 2017-12-31 14:34 | disposition hospice, home (50) ==
LOC: ERS 20:19 → ONC 12-31 01:04
PROVIDERS: ADMIT Family Medicine; ATTEND Family Medicine
PROC: 0W9G3ZX Drainage of Peritoneal Cavity, Percutaneous Approach, Diagnostic (ICD-10-PCS; principal; 2017-12-30)
PROC: BW40ZZZ Ultrasonography of Abdomen (ICD-10-PCS; 2017-12-30)
DX: C55 Malignant neoplasm of uterus, part unspecified (principal); R18.0 Malignant ascites; I10 Essential (primary) hypertension; E11.9 Type 2 diabetes mellitus without complications; Z88.5 Allergy status to narcotic agent; Z88.8 Allergy status to other drugs, medicaments and biological substances; Z79.899 Other long term (current) drug therapy
CPT/HCPCS: 49083; 93971; 96374; 96375; 96376; 99284; G0378; A4216; J1642; J2270; J2405; J2765